=== PATIENT | female | born 1960 | race Caucasian/White ===

== ENCOUNTER 2016-08-14 01:17 | Inpatient (IN) | payer OTHER ==
[~2016-08-14] VITALS: Ht 167.6 cm; Wt 90.1 kg
[2016-08-14 02:35] VITALS: BP 184/106; PULSE 88; RESP 18; TEMP 98.4; O2SAT 97
[2016-08-14] MEDS ORDERED: BENZTROPINE MESYLATE 1 MG TAB PO PRN (03:00)
[2016-08-14] MEDS ORDERED: MAGNESIUM HYDROXIDE SUSP 30 ML CUP PO PRN (03:00)
[2016-08-14] MEDS ORDERED: ACETAMINOPHEN 325 MG TAB PO PRN (03:00)
[2016-08-14] MEDS ORDERED: ALUMINUM/MAGNESIUM/SIMETH 30 ML CUP PO PRN (03:00)
[2016-08-14] MEDS ORDERED: GLUCAGON 1 MG/ML VIAL OTHER PRN (03:15)
[2016-08-14] MEDS ORDERED: DEXTROSE 50% IN WATER 50 ML VIAL(D50) IV PUSH PRN (03:15)
[2016-08-14] MEDS ORDERED: cloNIDine HCL 0.1 MG TAB PO PRN (03:15)
[2016-08-14 04:30] VITALS: BP 159/96; PULSE 79; O2SAT 97
[2016-08-14] MEDS: LOW DOSE INSULIN NOVOLOG SUPPLEMENTAL SCALE SQ SCH ×4 (06:37→21:00)
[2016-08-14 06:41] VITALS: BP 145/73; PULSE 67; RESP 18; TEMP 97.2; O2SAT 97
[2016-08-14] MEDS: NICOTINE 21 MG/24 HR PATCH T-DERMAL SCH (08:42)
[2016-08-14] MEDS ORDERED: ZIPR1CAP12 PO (10:52)
[2016-08-14] MEDS ORDERED: REME15TA PO (10:52)
[2016-08-14] MEDS ORDERED: LISI-515 PO (10:52)
[2016-08-14] MEDS ORDERED: TRAM50TA PO (10:52)
[2016-08-14] MEDS ORDERED: XOPEAER4 INH (10:52)
[2016-08-14] MEDS ORDERED: PRAZ1CAP PO (10:52)
[2016-08-14] MEDS ORDERED: ASPI81CH CHEW (10:52)
[2016-08-14] MEDS ORDERED: OMEG100010 PO (10:52)
[2016-08-14] MEDS ORDERED: OXCA600T PO (10:52)
[2016-08-14] MEDS ORDERED: PROT40TA PO (10:52)
[2016-08-14] MEDS ORDERED: IPRA0.02 NEB (10:52)
[2016-08-14] MEDS ORDERED: VERA120T3 PO (10:52)
[2016-08-14] MEDS ORDERED: CLON1TAB PO (10:52)
[2016-08-14] MEDS ORDERED: SPIRCAP INH (10:52)
[2016-08-14] MEDS ORDERED: GABA600T PO (10:52)
[2016-08-14] MEDS ORDERED: ALEN1TAB48 PO (10:52)
[2016-08-14] MEDS ORDERED: ALBU.5I NEB (10:52)
[2016-08-14] MEDS ORDERED: VITA100064 PO (10:52)
[2016-08-14] MEDS ORDERED: TRAZ100T6 PO (10:52)
[2016-08-14] MEDS ORDERED: METF500T PO (10:52)
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
[2016-08-14] MEDS: LORazepam 1 MG TAB PO PRN (13:36)
[2016-08-14 13:54] VITALS: BP 157/97; PULSE 85
[2016-08-14] MEDS ORDERED: ASPIRIN EC 325 MG TABEC PO ONE (15:00)
--- NOTE | 2016-08-14 15:41 | PD.CONS ---
HPI Service [facility] Hospitalists Consult Requested By Psychiatric services Reason for Consult Medical management Primary Care Physician Unknown Diagnoses: History of Present Illness Written by Julienne Wolf PA-C acting as scribe for Dr. Stern on 08/14/16 at 15:18. This is a 55yo female with PMHX of hypertension, diabetes, COPD, depression, bipolar disorder, PTSD, GERD, INA on CPAP and mild CVA who was admitted to psychiatric unit for severe depression. Hospitalist services consulted for medical management. She was seen and examined today. Patient states she is here because "my depression hit hard". She reports she was recently kicked out of her home by her . Patient reports increasing mood instability. Patient admits to a suicidal ideation as well as violence against her . Patient reports chronic pain in the neck, low back and left side for which she is seeking disability. She also reports osteoarthritis in the left knee with constant pain. She reports nausea without vomiting for the past few days. She also reports a dry cough off and on for the past few months. She endorses unintentional weight loss of 20 pounds since June but does admit this coincides when she stopped taking all of her medications due to financial hardship. She endorses decreased appetite. At present she denies any fever, chills, headache , dizziness, shortness of breath, chest pain or abdominal pain. She does states that she's had colonoscopies with polypectomies yearly. She reports seeing blood in the stool yesterday. Review of Systems Except as stated in HPI: all other systems reviewed are Neg Past Family Social History Allergies: Coded Allergies: Theophylline (Verified Allergy, Unknown, 08/14/16) Past Medical History Hypertension DM COPD INA on CPAP Depression Bipolar GERD Myocardial bridge Chronic neck, low back and left sided pain Osteoarthritis Osteoporosis Diverticulosis Colonic polyps Past Surgical History Partial hysterectomy Cardiac catheterization Multiple colonoscopies with polypectomies Reported Medications Patient reports being off all her medications since June Verapamil 120 Mg [id number] Mg PO BID #60 TAB Ref 0 08/14/16 Alendronate 70 Mg Tab70 Mg PO Q7D #4 TAB Ref 0 08/14/16 Trazodone 100 Mg [id number] Mg PO HS #30 TAB Ref 0 08/14/16 [place]-3 Fatty Acids ([place] 3 1000 mg)1 Cap Cap3 Cap PO DAILY 08/14/16 Pantoprazole (Protonix)40 Mg Tab40 Mg PO DAILY #30 TAB Ref 0 08/14/16 Lisinopril 20 Mg Tab20 Mg PO DAILY #30 TAB Ref 0 08/14/16 Metformin 500 Mg Sbv023 Mg PO BIDPC #60 TAB Ref 0 With meals 08/14/16 Ipratropium Neb 0.5 Mg/2.5 Ml Amp0.5 Mg NEB Q6HR NEB Ref 0 08/14/16 Tiotropium Inh (Spiriva Handihaler)18 Mcg Cap18 Mcg INH DAILY #30 CAP Ref 0 1 capsule = 18 mcg 08/14/16 Levalbuterol 15 GM Inh (Xopenex Hfa 15 GM Inh)45 Mcg/Act Aer45 Mcg INH Q4HR #1 INHALER Ref 0 Shake well before using. (1 puff = 45 mcg) 08/14/16 Gabapentin 600 Mg Mjh842 Mg PO BID #60 TAB Ref 0 08/14/16 Aspirin 81 Mg Chew81 Mg CHEW DAILY Ref 0 08/14/16 Cholecalciferol (Vitamin D)1,000 Unit Tab2,000 Units PO DAILY #1 BOTTLE Ref 0 08/14/16 Oxcarbazepine 600 Mg Dbx731 Mg PO DAILY #30 TAB Ref 0 08/14/16 Tramadol 50 Mg Tab50 Mg PO Q8H PRN (PAIN) Ref 0 08/14/16 Active Ordered Medications Current Medications Medications (Trade) Dose Ordered Sig/Owen Route Start Time Stop Time Status Last Admin (Cogentin) 1 mg Q12H PRN PO 08/14/16 03:00 (Benadryl) 50 mg HS PRN PO 08/14/16 03:00 (Tylenol) 650 mg Q4H PRN PO 08/14/16 03:00 (Milk Of Magnesia Liq) 30 ml DAILY PRN PO 08/14/16 03:00 (Mag-Al Plus Susp Liq) 30 ml Q6H PRN PO 08/14/16 03:00 (Habitrol 21 Mg Patch.24 Hr) 1 patch DAILY T-DERMAL 08/14/16 09:00 Miscellaneous Information 1 HS T-DERMAL 08/14/16 21:00 (Ativan) 1 mg Q6H PRN PO 08/14/16 03:15 08/14/16 13:36 (Catapres) 0.1 mg Q6H PRN PO 08/14/16 03:15 08/14/16 03:13 (D50w (Vial) Inj) 25 ml UNSCH PRN IV PUSH 08/14/16 03:15 (Glucagon Inj) 1 mg UNSCH PRN OTHER 08/14/16 03:15 (Aspirin Chew) 81 mg DAILY CHEW 08/15/16 09:00 (Vitamin D3) 2,000 units DAILY PO 08/15/16 09:00 (Neurontin) 600 mg BID PO 08/14/16 21:00 (Prinivil) 20 mg DAILY PO 08/15/16 09:00 (Glucophage) 500 mg BIDPC PO 08/14/16 18:00 (Trileptal) 600 mg DAILY PO 08/15/16 09:00 (Protonix) 40 mg DAILY PO 08/15/16 09:00 (Spiriva Inh) 18 mcg DAILY INH 08/15/16 09:00 (Ultram) 50 mg Q8H PRN PO 08/14/16 12:00 (Isoptin) 240 mg BID PO 08/14/16 21:00 Patient Own Medication PT OWN MED: (Levalbuterol 15 GM ... Q4HR INH 08/14/16 16:00 (Desyrel) 200 mg HS PO 08/14/16 21:00 (Geodon) 60 mg BIDPC PO 08/14/16 18:00 (Minipress) 2 mg HS PO 08/14/16 21:00 Family History Father - , cancer Mother - pacemaker, diabetes, hypertension, depression Social History Patient denies any tobacco use, alcohol consumption or illicit drug use. 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 She is currently but unable to work and is seeking disability. Physical Exam Vital Signs Vital Signs Date Time Temp Pulse Resp B/P Pulse Ox O2 Delivery O2 Flow Rate FiO2 08/14/16 13:54 85 157/97 08/14/16 06:41 97.2 67 18 145/73 97 08/14/16 04:30 79 159/96 97 08/14/16 02:35 98.4 88 18 184/106 97 Physical Exam GENERAL: This is a well-nourished, well-developed patient, in no apparent distress. Awake and alert. Sitting in day room. SKIN: No rashes, ecchymoses or lesions. Cool and dry. HEAD: Atraumatic. Normocephalic. No temporal or scalp tenderness. EYES: Pupils equal round and reactive. Extraocular motions intact. No scleral icterus. No injection or drainage. ENT: Nose without bleeding, purulent drainage or septal hematoma. Throat without erythema, tonsillar hypertrophy or exudate. Uvula midline. Airway patent. NECK: Trachea midline. Tender to palpation along anterior neck. No masses or lymphadenopathy appreciated. Stiff movements of neck in all ranges of motion. CARDIOVASCULAR: Regular rate and rhythm without murmurs, gallops, or rubs. RESPIRATORY: Clear to auscultation. Breath sounds equal bilaterally. No wheezes , rales, or rhonchi. GASTROINTESTINAL: Abdomen soft, non-tender, nondistended. No hepato-splenomegaly , or palpable masses. No guarding. MUSCULOSKELETAL: Extremities without clubbing, cyanosis, or edema. Tenderness to palpation of left knee. No calf tenderness. NEUROLOGICAL: Awake and alert. Able to move all extremities. Normal speech. Assessment and Plan Assessment and Plan 55yo female with PMHX of hypertension, diabetes, COPD, depression, bipolar disorder, GERD, INA on CPAP and mild CVA who was admitted to psychiatric unit for severe depression. Hospitalist services consulted for medical management. Depression Bipolar disorder - Management per psychiatric team History of colon polyps Patient reports recent hematochezia - Consult GI - follow up H/H Hypertension Myocardial bridging Chest pain -informed by nursing staff but patient did not complain of during exam. Suspect anxiety related as it improved after Ativan was given. - Resume home antihypertensive meds lisinopril 20 mg daily and verapamil 240 mg by mouth twice a day - ASA now and daily - Cycle cardiac enzymes and EKGs to rule out ACS. Patient asymptomatic currently. - Clonidine when necessary - Monitor BP COPD - Resume home Spiriva and bronchodilators - Duonebs prn DM - Obtain A1c - Hold metformin 500 mg by mouth twice a day in the event further cardiac testing is needed - accuchecks - ISS GERD - PPI INA - Patient uses CPAP at home but unable to bring into the psych unit - Recommend the patient sleep on her side DVT prophylaxis - Patient is ambulatory Discussed Condition With This note was transcribed by [email or web address] [Julienne Wolf PA-C]. I, Dr. Anibal Stern personally performed the history, physical exam, and medical decision making; and confirmed the accuracy of the information in the transcribed note. Authenticated by Dr. Anibal Stern on 08/17/16 at 11:41. Julienne Wolf Aug 14, 2016 15:41 Anibal Stern MD Aug 17, 2016 11:41
[2016-08-14] MEDS: RESP: IPRATROPIUM 0.5 MG/2.5 ML NEB NEB SCH ×2 (16:00→20:39)
[2016-08-14 16:19] VITALS: BP 168/79; PULSE 77; RESP 18; TEMP 98; O2SAT 99
--- NOTE | 2016-08-14 16:21 | PD.CONS ---
HPI History of Present Illness This is a 55 year old female with family hx colon ca, personal hx GERD, HTN, who presents w/ complaint of blood in stool and abdominal pain. She had a BM yesterday and there was red blood intermingled in the stool. NO rectal bleeding independently of BM. SHe has seen this twice before in the last year. SHe is also having epigastric pain, nausea. She has lower abdominal discomfort that is constant and exacerbated by having a BM. THis has been on and off in the last year. She has lost 20lbs in the last month and a half. She had a colonoscopy last year and polyps were found; she has colonoscopy every year. She had EGD 2y ago and says she was told her esophagus had "burned appearance" and she has hiatal hernia. SHe does have GERD for which she takes protonix and it helps somewhat. She says she did a test last year that found "gallbladder sludge." Denies melena, vomiting. PFSH Past Medical History HTN GERD osteoporosis migraines fibromyalgia Past Surgical History partial hysterectomy laparoscopy cardiac cath Coded Allergies: Theophylline (Verified Allergy, Unknown, 08/14/16) Family History breast ca colon ca gastric ca Social History no ETOH, tobacco use, or illicit drug use Review of Systems Constitutional: COMPLAINS OF: Weight loss, DENIES: Fever Ears, nose, mouth, throat: DENIES: Hearing loss Respiratory: DENIES: Cough Cardiovascular: DENIES: Palpitations Gastrointestinal: COMPLAINS OF: Abdominal pain, Bloody stools, Nausea, DENIES : Black stools, Constipation, Diarrhea, Vomiting, Hematemesis Genitourinary: DENIES: Hematuria Musculoskeletal: DENIES: Joint Swelling Integumentary: DENIES: Rash Hematologic/lymphatic: DENIES: Bruising Neurologic: DENIES: Abnormal gait Psychiatric: DENIES: Confusion GI Exam Vitals I&O Vital Signs Date Time Temp Pulse Resp B/P Pulse Ox O2 Delivery O2 Flow Rate FiO2 08/14/16 13:54 85 157/97 08/14/16 06:41 97.2 67 18 145/73 97 08/14/16 04:30 79 159/96 97 08/14/16 02:35 98.4 88 18 184/106 97 I/O 08/13/16 08/13/16 08/13/16 08/14/16 08/14/16 08/14/16 07:00 15:00 23:00 07:00 15:00 23:00 Intake Total 240 ml Balance 240 ml Intake Oral 240 ml Physical Examination HEENT: PERRL; normocephalic; atraumatic; no jaundice. CHEST: CTA CARDIAC: RRR ABDOMEN: Soft, nondistended, RUQ & epigastric & lower abd TTP; no hepatosplenomegaly; bowel sounds are present in all four quadrants. EXTREMITIES: No clubbing, cyanosis, or edema. SKIN: Normal; no rash; no jaundice. PRODUCTION POSTING CLERK: No focal deficits; alert and oriented times three. Assessment and Plan Plan ASSESSMENT - hematochezia - yesterday episode red blood intermingled in stool. Last colonoscopy 1y ago found polyp (s). - abdominal pain - c/o epigastric discomfort, constant lower abd pain in last year, exacerbated by BM. Pt claims being told she had gallbladder sludge. EGD 2y ago with finding " burnt appearance" esophagus, hiatal hernia. hx GERD, takes PPI. Will do labwork, CT abd. - weight loss - 20lbs last month, pos [facility] - CBC, LFT - CT abd - EGD, colonoscopy wednesday tentatively - further recommendations to follow Pt seen by myself and Dr Shell and this note is written on his behalf Rhonda Marcum Aug 14, 2016 16:21
[2016-08-14] MEDS: metFORMIN HCL 500 MG TAB PO SCH (18:00)
[2016-08-14] MEDS: ZIPRASIDONE HCL 60 MG CAP PO SCH (18:48)
[2016-08-14] MEDS ORDERED: DIATRIZOATE MEGLUM/DIATRIZOATE SOD 9 ML CUP PO ONE (19:45)
[2016-08-14] MEDS: LEVALBUTEROL INH SCH (20:00)
[2016-08-14] MEDS: REMOVE OLD NICOTINE PATCH T-DERMAL SCH (21:00)
[2016-08-14] MEDS ORDERED: VERAPAMIL HCL 120 MG TAB PO SCH (21:00)
[2016-08-14] MEDS: GABAPENTIN 300 MG CAP PO SCH (22:40)
[2016-08-14] MEDS: traZODone HCL 100 MG TAB PO SCH (22:40)
[2016-08-14] MEDS: VERAPAMIL HCL 240 MG SUSTAINED RELEASE TAB PO SCH (22:40)
[2016-08-14] MEDS: PRAZOSIN HCL 2 MG CAP PO SCH (22:41)
[2016-08-15] MEDS: RESP: IPRATROPIUM 0.5 MG/2.5 ML NEB NEB SCH ×4 (04:00→21:32)
[2016-08-15] MEDS: LEVALBUTEROL INH SCH ×6 (04:00→20:00)
[2016-08-15] MEDS: LOW DOSE INSULIN NOVOLOG SUPPLEMENTAL SCALE SQ SCH ×4 (06:44→21:00)
[2016-08-15 06:49] VITALS: BP 166/78; PULSE 76; RESP 18; TEMP 97.4; O2SAT 96
[2016-08-15 08:00] LABS: AUTOMATED NEUTROPHIL # 2.8 TH/MM3 (1.8-7.7); BASOPHIL # 0.1 TH/MM3 (0-0.2); EOSINOPHIL # 0.2 TH/MM3 (0-0.4); EOSINOPHIL % 2.9 % (0.0-4.0); HEMATOCRIT 38.7 % (35.0-46.0); HEMO FLAGS DIFF FINAL; LYMPH % 38.7 % (9.0-44.0); LYMPHOCYTE # 2.1 TH/MM3 (1.0-4.8); MEAN CORPUSCULAR HEMOGLOBIN 27.7 PG (27.0-34.0); MEAN CORPUSCULAR HGB CONC 32.3 % (32.0-36.0); NEUT % 50.4 % (16.0-70.0); PLATELET COUNT 218 TH/MM3 (150-450); WHITE BLOOD COUNT 5.5 TH/MM3 (4.0-11.0)
[2016-08-15 08:23] LABS: ANION GAP 10 MEQ/L (5-15); AST (GOT) 62 U/L (15-37); BICARBONATE 25.2 MEQ/L (21.0-32.0); BLOOD UREA NITROGEN 10 MG/DL (7-18); CHLORIDE 107 MEQ/L (98-107); GLOMERULAR FILTRATION RATE 82 ML/MIN (>89); POTASSIUM 3.8 MEQ/L (3.5-5.1); SODIUM (NA) 142 MEQ/L (136-145)
[2016-08-15 08:24] LABS: ALT (GPT) 32 U/L (10-53)
[2016-08-15 08:28] LABS: ALKALINE PHOSPHATASE 66 U/L (45-117); HDL CHOLESTEROL 41.7 MG/DL (40.0-60.0); INDIRECT BILIRUBIN 0.2 MG/DL (0.0-0.8); LDL CHOLESTEROL 156 MG/DL (0-99); TOTAL BILIRUBIN ADULT 0.3 MG/DL (0.2-1.0)
[2016-08-15] MEDS: ZIPRASIDONE HCL 60 MG CAP PO SCH ×2 (09:00→18:13)
[2016-08-15] MEDS: TIOTROPIUM BROMIDE 18 MCG INH INH SCH (09:00)
[2016-08-15] MEDS: GABAPENTIN 300 MG CAP PO SCH ×2 (09:00→21:00)
[2016-08-15] MEDS: PANTOPRAZOLE SOD 40 MG DELAYED RELEASE TAB PO SCH (09:00)
[2016-08-15] MEDS ORDERED: OMEGA PO SCH (09:00)
[2016-08-15] MEDS: NICOTINE 21 MG/24 HR PATCH T-DERMAL SCH (09:00)
[2016-08-15] MEDS ORDERED: FATTY ACIDS PO SCH (09:00)
[2016-08-15] MEDS: VERAPAMIL HCL 240 MG SUSTAINED RELEASE TAB PO SCH ×2 (09:00→21:00)
[2016-08-15] MEDS: OXcarbazepine 600 MG TAB PO SCH (09:00)
[2016-08-15] MEDS ORDERED: LISINOPRIL 20 MG TAB PO SCH (09:00)
[2016-08-15] MEDS: ASPIRIN 81 MG CHEW TAB CHEW SCH (09:00)
[2016-08-15] MEDS: CHOLECALCIFEROL (VIT D3) 1000 UNIT TAB PO SCH (09:00)
[2016-08-15] MEDS ORDERED: DIATRIZOATE MEGLUM/DIATRIZOATE SOD 9 ML CUP ONE (10:00)
[2016-08-15] MEDS ORDERED: ATORVASTATIN 40 MG TAB PO ONE (12:15)
--- NOTE | 2016-08-15 15:23 | HHI.PYPN ---
Subjective Remarks Pt seen and discussed with staff. She reports that mood is more calm today and she is feeling less overwhelmed by depression. She denies SI/HI today. She is compliant with medication and denies side effects. Objective Alert: Yes [place]: Person, Place, Date Mood: Depressed Affect: Restricted Memory Intact: Immediate, Recent, Remote Hallucinations: Other (none) Delusions: No Delusion Type: Other (none) Suicidal: Ideation (denies) Homicidal: Ideation (denies) Insight/Judgment poor Labs Test 08/14/16 08/14/16 08/15/16 17:42 20:46 07:05 Troponin I LESS THAN 0.02 LESS THAN 0.02 LESS THAN 0.02 NG/ML NG/ML NG/ML White Blood Count 5.5 TH/MM3 Red Blood Count 4.50 MIL/MM3 Hemoglobin 12.5 GM/DL Hematocrit 38.7 % Mean Corpuscular Volume 86.0 FL Mean Corpuscular Hemoglobin 27.7 PG Mean Corpuscular Hemoglobin 32.3 % Concent Red Cell Distribution Width 14.0 % Platelet Count 218 TH/MM3 Mean Platelet Volume 8.1 FL Neutrophils (%) (Auto) 50.4 % Lymphocytes (%) (Auto) 38.7 % Monocytes (%) (Auto) 7.0 % Eosinophils (%) (Auto) 2.9 % Basophils (%) (Auto) 1.0 % Neutrophils # (Auto) 2.8 TH/MM3 Lymphocytes # (Auto) 2.1 TH/MM3 Monocytes # (Auto) 0.4 TH/MM3 Eosinophils # (Auto) 0.2 TH/MM3 Basophils # (Auto) 0.1 TH/MM3 CBC Comment DIFF FINAL Differential Comment Sodium Level 142 MEQ/L Potassium Level 3.8 MEQ/L Chloride Level 107 MEQ/L Carbon Dioxide Level 25.2 MEQ/L Anion Gap 10 MEQ/L Blood Urea Nitrogen 10 MG/DL Creatinine 0.74 MG/DL Estimat Glomerular Filtration 82 ML/MIN Rate Random Glucose 115 MG/DL Calcium Level 9.3 MG/DL Total Bilirubin 0.3 MG/DL Direct Bilirubin 0.1 MG/DL Indirect Bilirubin 0.2 MG/DL Aspartate Amino Transf 62 U/L (AST/SGOT) Alanine Aminotransferase 32 U/L (ALT/SGPT) Alkaline Phosphatase 66 U/L Total Creatine Kinase 48 U/L Total Protein 7.8 GM/DL Albumin 3.4 GM/DL Triglycerides Level 181 MG/DL Cholesterol Level 234 MG/DL LDL Cholesterol 156 MG/DL HDL Cholesterol 41.7 MG/DL Cholesterol/HDL Ratio 5.61 RATIO Vitals/IOs Vital Signs Date Time Temp Pulse Resp B/P Pulse Ox O2 Delivery O2 Flow Rate FiO2 08/15/16 06:49 97.4 76 18 166/78 96 Intake and Output 08/14/16 08/14/16 08/15/16 08:00 16:00 00:00 Intake Total 240 ml 240 ml Balance 240 ml 240 ml Assessment & Plan Problem List: (1) Adjustment disorder with mixed disturbance of emotions and conduct ICD Code: F43.25 (2) History of bipolar disorder ICD Code: Z86.59 Assessment & Plan Continue current tx plan Estimated LOS: days Justification for Cont. Inpt. risk of decompensation. Request HC Surrog/Guard Advoc?: No Lia Abrams MD Aug 15, 2016 15:23
--- NOTE | 2016-08-15 16:24 | EKG ---
Date Performed: 08/14/2016 Time Performed: 20:24:10 PTAGE: 55 years EKG: Sinus rhythm SEPTAL MYOCARDIAL INFARCTION , OF INDETERMINATE AGE ABNORMAL ECG PREVIOUS TRACING : 08/14/2016 14.35 Compared to prior tracing no significant change DOCTOR: Esau Broussard Interpretating Date/Time 08/15/2016 16:22:54
--- NOTE | 2016-08-15 16:43 | EKG ---
Date Performed: 08/14/2016 Time Performed: 14:35:11 PTAGE: 55 years EKG: Sinus rhythm NORMAL ECG NO PREVIOUS TRACING DOCTOR: Esau Broussard Interpretating Date/Time 08/15/2016 16:42:15
[2016-08-15] MEDS ORDERED: IOHEXOL 350 MG/ML 10 ML VIAL (for RAD DIAG) IV ONE (17:30)
--- NOTE | 2016-08-15 17:40 | RADRPT ---
EXAM DATE/TIME: 08/15/2016 16:55 [facility] COMPARISON: No previous studies available for comparison. INDICATIONS : Evaluate for diffuse abdomen pain. IV CONTRAST: 90 cc Omnipaque 350 (iohexol) IV ORAL CONTRAST: Prescribed oral contrast ingested. RADIATION DOSE: 10.25 CTDIvol (mGy) MEDICAL HISTORY : Stroke. Hypertension. fatty liver SURGICAL HISTORY : Hysterectomy. ENCOUNTER: Initial ACUITY: 1 day PAIN SCALE: 5/10 LOCATION: Bilateral abdomen TECHNIQUE: Volumetric scanning of the abdomen and pelvis was performed. Using automated exposure control and ad justment of the mA and/or kV according to patient size, radiation dose was kept as low as reasonably achievable to obtain optimal diagnostic quality images. DICOM format image data is available electro nically for review and comparison. FINDINGS: LOWER LUNGS: The visualized lower lungs are clear. LIVER: Decreased attenuation without lesion. There is no dilation of the biliary tree. No calcified gallst ones. SPLEEN: Normal size with small low densities. PANCREAS: Within normal limits. KIDNEYS: Normal in size and shape. There is no mass, stone or hydronephrosis. ADRENAL GLANDS: Within normal limits. VASCULAR: There is no aortic aneurysm. BOWEL/MESENTERY: The stomach, small bowel, and colon demonstrate no acute abnormality. There is no free intraperitone al air or fluid. The appendix measures 1 cm in thickness but no inflammatory changes. ABDOMINAL WALL: Within normal limits. RETROPERITONEUM: There is no lymphadenopathy. BLADDER: No wall thickening or mass. REPRODUCTIVE: Within normal limits. INGUINAL: There is no lymphadenopathy or hernia. MUSCULOSKELETAL: Within normal limits for patient age. CONCLUSION: 1. Moderate hepatic steatosis. 2. The appendix is somewhat prominent in diameter measuring a centimeter but no inflammatory changes are noted. Clinical correlation. 3. Status post hysterectomy. Ramiro Veag MD on August 15, 2016 at 17:35 Board Certified Radiologist. This report was verified electronically.
[2016-08-15 18:00] VITALS: BP 144/78; PULSE 75; RESP 18; TEMP 97.5; O2SAT 97
[2016-08-15] MEDS: traMADol HCL 50 MG TAB PO PRN (19:41)
[2016-08-15] MEDS: REMOVE OLD NICOTINE PATCH T-DERMAL SCH (21:00)
[2016-08-15] MEDS: traZODone HCL 100 MG TAB PO SCH (21:01)
[2016-08-15] MEDS: PRAZOSIN HCL 2 MG CAP PO SCH (21:01)
[2016-08-16] MEDS: LEVALBUTEROL INH SCH ×6 (04:00→20:00)
[2016-08-16] MEDS: RESP: IPRATROPIUM 0.5 MG/2.5 ML NEB NEB SCH ×4 (04:00→20:09)
[2016-08-16 06:45] VITALS: BP 129/65; PULSE 77; RESP 18; TEMP 95.8; O2SAT 92
[2016-08-16] MEDS: LOW DOSE INSULIN NOVOLOG SUPPLEMENTAL SCALE SQ SCH ×3 (07:00→16:00)
[2016-08-16] MEDS: NICOTINE 21 MG/24 HR PATCH T-DERMAL SCH (09:00)
[2016-08-16] MEDS: PANTOPRAZOLE SOD 40 MG DELAYED RELEASE TAB PO SCH (09:00)
[2016-08-16] MEDS: TIOTROPIUM BROMIDE 18 MCG INH INH SCH (09:00)
[2016-08-16] MEDS: CHOLECALCIFEROL (VIT D3) 1000 UNIT TAB PO SCH (09:33)
[2016-08-16] MEDS: GABAPENTIN 300 MG CAP PO SCH ×2 (09:33→21:57)
[2016-08-16] MEDS: VERAPAMIL HCL 240 MG SUSTAINED RELEASE TAB PO SCH ×2 (09:33→21:57)
[2016-08-16] MEDS: ZIPRASIDONE HCL 60 MG CAP PO SCH ×2 (09:33→18:24)
[2016-08-16] MEDS: ATORVASTATIN 40 MG TAB PO SCH (09:34)
[2016-08-16] MEDS: OXcarbazepine 600 MG TAB PO SCH (09:34)
[2016-08-16] MEDS: LISINOPRIL 20 MG TAB PO SCH (09:34)
[2016-08-16] MEDS: ASPIRIN 81 MG CHEW TAB CHEW SCH (09:34)
[2016-08-16] MEDS: traMADol HCL 50 MG TAB PO PRN (10:30)
[2016-08-16 10:34] LABS: HEMOGLOBIN A1a 1.1 %; HEMOGLOBIN A1b 2.1 %; HEMOGLOBIN Ao 84.4 %; HEMOGLOBIN P3 3.7 %
--- NOTE | 2016-08-16 15:33 | HHI.PYPN ---
Subjective Remarks Pt seen and discussed with staff. Pt has been cooperative with treatment and compliant with medications. She has been out of room today and engaging in unit activities. She reports that depression is decreasing and she denies SI/HI today. . Objective Alert: Yes [place]: Person, Place, Date Mood: Depressed Affect: Restricted Memory Intact: Immediate, Recent, Remote Hallucinations: Other (none) Delusions: No Delusion Type: Other (none) Suicidal: Ideation (denies) Homicidal: Ideation (denies) Insight/Judgment fair Vitals/IOs Vital Signs Date Time Temp Pulse Resp B/P Pulse Ox O2 Delivery O2 Flow Rate FiO2 08/16/16 06:45 95.8 77 18 129/65 92 Assessment & Plan Problem List: (1) Adjustment disorder with mixed disturbance of emotions and conduct ICD Code: F43.25 (2) History of bipolar disorder ICD Code: Z86.59 Assessment & Plan Continue current tx plan. Estimated LOS: days Justification for Cont. Inpt. observing for safety Request HC Surrog/Guard Advoc?: Lia Agudelo MD Aug 16, 2016 15:33
--- NOTE | 2016-08-16 16:34 | MB ---
cc: LILA SHARP MD DATE OF CONSULTATION: 08/16/2016. REASON FOR CONSULTATION: Chest pain. 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 The patient is currently admitted to the psychiatric unit for severe depression. She began complaining to staff of intermittent chest pressure which she describes as a squeezing sensation without any particular exacerbating or relieving factors. She is a somewhat difficult historian. She denies any current chest pain. She has no shortness breath, lightheadedness, dizziness or syncope. PAST MEDICAL HISTORY: 1. Diabetes. 2. COPD. 3. Depression. 4. Bipolar disorder. 5. PTSD. 6. Gastroesophageal reflux disease (GERD). 7. Obstructive sleep apnea. 8. CVA. CURRENT MEDICATIONS: 1. Lisinopril 40 milligrams daily. 2. Lipitor 40 milligrams daily. 3. Aspirin 81 milligrams daily. 4. Trileptal. 5. Protonix. 6. Spiriva. 7. Neurontin 600 milligrams twice a day. 8. Desyrel 200 milligrams at bedtime. 9. 2 milligrams at bedtime. 10. Verapamil 240 milligrams twice a day. 11. Geodon 60 milligrams twice a day. 12. Atrovent. ALLERGIES: THEOPHYLLINE. PHYSICAL EXAMINATION: VITAL SIGNS: Afebrile, pulse 77, respiratory rate 18, blood pressure 129/65, satting 92% on room air. GENERAL: In general, a pleasant obese woman in no distress. NECK: No jugular venous distention. LUNGS: Clear to auscultation bilaterally. CARDIOVASCULAR: Regular rate and rhythm. No murmurs appreciated. ABDOMEN: Benign. EXTREMITIES: No edema. LABORATORY DATA: Sodium 142, potassium 3.8, chloride 107, bicarbonate 25.2, BUN 10, creatinine 0.74, glucose 115. Cardiac enzymes are negative x3. LDL is 156. White count is 5.5, hematocrit 38.7, platelet count 218,000. EKGS: Electrocardiogram shows sinus rhythm with poor R wave progression possibly due to lead placement. IMPRESSION: 1. Chest pain. The patient's chest pain is reasonably typical-sounding; however, her history is complicated by severe depression and her nurse describes multiple somatic complaints. Her EKG is not currently ischemic. I will have her undergo a nuclear stress test as well as try to obtain her cardiac catheterization report from [place]. Further recommendations will be based on these studies. Thank you again for the opportunity to participate in this patient's care. MD MONIQUE Lim/MICHAEL /4:16 PM /4:31 PM
[2016-08-16 17:13] VITALS: BP 157/80; PULSE 88; RESP 18; TEMP 96.8; O2SAT 98
--- NOTE | 2016-08-16 20:51 | HHI.GIFU ---
GI Follow-up Note Consult Follow-up Subjective: Patient laying in bed comfortably, no nausea, vomiting, states she has abdominal pain in epigastrium.Denies rectal bleeding .today she had chest pains, cardiology consulted, having stress test in am.she had colonoscopy last year, was told she had polyps and hemorrhoids .she has constipation , sometimes has to stain for stool. She had an egd in 2014 -hiatal hernia Objective: PHYSICAL EXAMINATION: Vitals signs stable No fever Vital Signs Date Time Temp Pulse Resp B/P Pulse Ox O2 Delivery O2 Flow Rate FiO2 08/16/16 17:13 96.8 88 18 157/80 98 HEENT: Pupils round and reactive to light; normocephalic; atraumatic; no jaundice. Throat is clear. NECK: Neck is supple, no JVD, no lymphadenopathy. CHEST: Chest is clear to auscultation and percussion. CARDIAC: Regular rate and rhythm with no murmur gallop or rubs. ABDOMEN: Soft, nondistended, nontender; no hepatosplenomegaly; bowel sounds are present in all four quadrants. EXTREMITIES: No clubbing, cyanosis, or edema. SKIN: Normal; no rash; no jaundice. KEG INSPECTOR: No focal deficits; alert and oriented times three. Available Data (labs, X- Rays, Procedues) : ct, labs reviewed ASSESSMENT/PLAN: rectal bleeding, most likely hemorrhoidal, had colonoscopy last year atypical chest pain-being evaluated by cardiology Recommendation hydrocortisone suppositories miralax egd/flexisigmoidoscopy when cleared by cardiology obtain colon report It was a pleasure seeing Lizz Milan. Thank you for this consult. Entered by: Hannah Ahmadi MD Aug 16, 2016 20:51
[2016-08-16] MEDS: HYDROCORTISONE ACETATE 25 MG SUPP RECTAL SCH (21:00)
[2016-08-16] MEDS: INSULIN ASPART SUPPLEMENTAL SCALE SQ SCH (21:00)
[2016-08-16] MEDS: REMOVE OLD NICOTINE PATCH T-DERMAL SCH (21:00)
[2016-08-16] MEDS: traZODone HCL 100 MG TAB PO SCH (21:56)
[2016-08-16] MEDS: PRAZOSIN HCL 2 MG CAP PO SCH (21:57)
[2016-08-17] MEDS: LEVALBUTEROL INH SCH ×6 (04:00→20:00)
[2016-08-17] MEDS: RESP: IPRATROPIUM 0.5 MG/2.5 ML NEB NEB SCH ×3 (04:08→16:00)
[2016-08-17] MEDS: INSULIN ASPART SUPPLEMENTAL SCALE SQ SCH ×4 (06:06→21:00)
[2016-08-17] MEDS: PANTOPRAZOLE SOD 40 MG DELAYED RELEASE TAB PO SCH (09:00)
[2016-08-17] MEDS: TIOTROPIUM BROMIDE 18 MCG INH INH SCH (09:00)
[2016-08-17] MEDS: CHOLECALCIFEROL (VIT D3) 1000 UNIT TAB PO SCH (09:00)
[2016-08-17] MEDS: NICOTINE 21 MG/24 HR PATCH T-DERMAL SCH (09:00)
[2016-08-17] MEDS: HYDROCORTISONE ACETATE 25 MG SUPP RECTAL SCH ×3 (09:00→21:38)
[2016-08-17] MEDS: VERAPAMIL HCL 240 MG SUSTAINED RELEASE TAB PO SCH ×2 (09:45→21:38)
[2016-08-17] MEDS: POLYETHYLENE GLYCOL 17 GM PKG PO SCH (09:45)
[2016-08-17] MEDS: ZIPRASIDONE HCL 60 MG CAP PO SCH (09:46)
[2016-08-17] MEDS: GABAPENTIN 300 MG CAP PO SCH ×2 (09:46→21:36)
[2016-08-17] MEDS: ASPIRIN 81 MG CHEW TAB CHEW SCH (09:46)
[2016-08-17] MEDS: LISINOPRIL 20 MG TAB PO SCH (09:47)
[2016-08-17] MEDS: ATORVASTATIN 40 MG TAB PO SCH (09:47)
[2016-08-17] MEDS: OXcarbazepine 600 MG TAB PO SCH (09:47)
--- NOTE | 2016-08-17 09:49 | PD.CARD.PN ---
Subjective Subjective Remarks Pt says no further chest pain Objective Medications Administered Medications Medications (Trade) Dose Ordered Sig/Owen Route PRN Reason Start Time Stop Time Status Last Admin Dose Admin Lorazepam (Ativan) 1 mg Q6H PRN PO MODERATE TO SEVERE ANXIETY 08/14/16 03:15 08/14/16 13:36 Clonidine (Catapres) 0.1 mg Q6H PRN PO BP > 180/100 08/14/16 03:15 08/14/16 03:13 Aspirin (Aspirin Chew) 81 mg DAILY CHEW 08/15/16 09:00 08/16/16 09:34 Cholecalciferol (Vitamin D3) 2,000 units DAILY PO 08/15/16 09:00 08/16/16 09:33 Gabapentin (Neurontin) 600 mg BID PO 08/14/16 21:00 08/16/16 21:57 Oxcarbazepine (Trileptal) 600 mg DAILY PO 08/15/16 09:00 08/16/16 09:34 Pantoprazole Sodium (Protonix) 40 mg DAILY PO 08/15/16 09:00 08/16/16 09:00 Tiotropium [place] (Spiriva Inh) 18 mcg DAILY INH 08/15/16 09:00 08/16/16 09:00 Tramadol HCl (Ultram) 50 mg Q8H PRN PO PAIN 6-10 08/14/16 12:00 08/16/16 10:30 Trazodone HCl (Desyrel) 200 mg HS PO 08/14/16 21:00 08/16/16 21:56 Ziprasidone (Geodon) 60 mg BIDPC PO 08/14/16 18:00 08/16/16 18:24 Prazosin HCl (Minipress) 2 mg HS PO 08/14/16 21:00 08/16/16 21:57 Verapamil HCl (Isoptin Sr) 240 mg BID PO 08/14/16 21:00 08/16/16 21:57 Lisinopril (Prinivil) 40 mg DAILY PO 08/16/16 09:00 08/16/16 09:34 Atorvastatin Calcium (Lipitor) 40 mg DAILY PO 08/16/16 09:00 08/16/16 09:34 Vital Signs / I&O Vital Signs Date Time Temp Pulse Resp B/P Pulse Ox O2 Delivery O2 Flow Rate FiO2 08/16/16 17:13 96.8 88 18 157/80 98 Physical Exam GENERAL: This is a well-nourished, well-developed patient, in no apparent distress. CARDIOVASCULAR: Regular rate and rhythm without murmurs, gallops, or rubs. RESPIRATORY: Clear to auscultation. Breath sounds equal bilaterally. No wheezes , rales, or rhonchi. GASTROINTESTINAL: Abdomen soft, non-tender, nondistended. Normal active bowel sounds MUSCULOSKELETAL: Extremities without clubbing, cyanosis, or edema. NEURO: Alert & Oriented x4 to person, place, time, situation. Moves all ext x4 Imaging Last Impressions Abdomen/Pelvis CT 08/14/16 0000 Signed Impressions: Service Date/Time: Monday, August 15, 2016 16:55 - CONCLUSION: 1. Moderate hepatic steatosis. 2. The appendix is somewhat prominent in diameter measuring a centimeter but no inflammatory changes are noted. Clinical correlation. 3. Status post hysterectomy. Ramiro Vega MD Assessment and Plan Problem List: (1) Chest pain Assessment and Plan: Nuc stress today (2) Myocardial bridge Assessment and Plan: per pt's report, attempting to get old cath results from [place] (3) History of bipolar disorder Assessment and Plan If nuclear non-ischemic will sign off and be available as needed, please call with questions. Regis Scott MD Aug 17, 2016 09:48
--- NOTE | 2016-08-17 12:05 | HHI.PYPN ---
Subjective Remarks Patient seen and examined with nurse. Chart reviewed. Case discussed with nursing staff. On my examination today, the patient reports that her irritability is decreasing. Her urges towards violence directed against her is likewise decreasing but still present. She says that she plans to reside with a different family member on eventual discharge. She continues to complain of nightmares disrupting her sleep. She does say that this is somewhat improved with the prazosin, but she finds that the nightmare will simply "pause" for a time before resuming right where she left off. No suicidal ideation. Denies side effects from medications. No new physical complaints. Review of Systems Except as stated in HPI: all other systems reviewed are Neg Objective Alert: Yes [place]: Person, Place, Date Mood: Depressed (lessening somewhat) Affect: Restricted (more reactive) Memory Intact: Immediate, Recent, Remote Hallucinations: Other (no hallucinations) Delusions: No Delusion Type: Other (no delusional material) Suicidal: Ideation (no suicidal ideation) Homicidal: Ideation (decreasing urge to violence against her ) Insight/Judgment Fair Remarks No motor abnormalities noted. Thought process linear. Grooming and hygiene good. Labs Labs reviewed. Last Impressions Abdomen/Pelvis CT 08/14/16 0000 Signed Impressions: Service Date/Time: Monday, August 15, 2016 16:55 - CONCLUSION: 1. Moderate hepatic steatosis. 2. The appendix is somewhat prominent in diameter measuring a centimeter but no inflammatory changes are noted. Clinical correlation. 3. Status post hysterectomy. Ramiro Vega MD Vitals/IOs Vital Signs Date Time Temp Pulse Resp B/P Pulse Ox O2 Delivery O2 Flow Rate FiO2 08/16/16 17:13 96.8 88 18 157/80 98 Assessment & Plan Problem List: (1) Adjustment disorder with mixed disturbance of emotions and conduct ICD Code: F43.25 (2) History of bipolar disorder ICD Code: Z86.59 Assessment & Plan Titrate Geodon to 80mg BIDPC to try to lessen irritability. Titrate prazosin to 3mg qHS for nightmares. Continue other psychotropics as ordered. GI and cardiology input noted and appreciated. Continue other medications and care as ordered. Justification for Cont. Inpt. Medication changes in process. Monitoring for impairments in safety. Risk for decompensation in less restrictive environment. Discharge Planning Pending stabilization. Request HC Surrog/Guard Advoc?: No Chaiffetz,Alfonzo B. MD Aug 17, 2016 12:04
[2016-08-17] MEDS ORDERED: REGADENOSON INJ 0.4 MG/5 ML SYR ONE (13:25)
--- NOTE | 2016-08-17 15:16 | RADRPT ---
EXAM DATE/TIME: 08/17/2016 13:15 [facility] COMPARISON: CT ABDOMEN & PELVIS W CONTRAST, August 15, 2016, 16:55. INDICATIONS : Mid chest pressure for one day. Angina. DOSE: 25.6 mCi Tc99m Myoview at stress. 8.7 mCi Tc99m Myoview at rest. 0.4 mg Lexiscan STRESS SYMPTOMS: Chest pain, dyspnea and headache. EJECTION FRACTION: 70% MEDICAL HISTORY : Gastroesophageal reflux disease. Chronic obstructive pulmonary disease. Diabetes mellitus type 2. SURGICAL HISTORY : Hysterectomy. ENCOUNTER: Initial ACUITY: 1 day PAIN SCALE: 4/10 LOCATION: Midsternal chest TECHNIQUE: The patient underwent pharmacologic stress with infusion of prescribed dose. Continuous ECG tracing was monitored during stress. Gated SPECT imaging was performed after stress and conventional SPECT i maging was performed at rest. The examination was performed on a SPECT/CT scanner, both attenuation and non-corrected datasets were reviewed. FINDINGS: DISTRIBUTION: The maximum perfused segment at stress is in the lateral wall. PERFUSION STUDY: The pattern of perfusion at stress is within normal limits with the exception of a tiny fixed defect in the lobe inferolateral wall could be attenuation artifact and does not persist on the attenuation corrected images. GATED STUDY: There is intact wall motion and thickening without hypokinetic or dyskinetic segments. CONCLUSION: No significant ischemia. RISK CATEGORY: Low (<1% Annual Mortality Rate) Alice Cunha MD on August 17, 2016 at 15:13 Board Certified Radiologist. This report was verified electronically.
--- NOTE | 2016-08-17 17:01 | HHI.PR ---
Subjective Remarks Follow up on patient with HTN, DM, COPD, bipolar disorder, INA on CPAP and mild CVA. Patient seen and examined today. Patient had nuclear stress test. Awaiting EGD/flexible sigmoidoscopy. She complains of several month history of left shoulder and left hip pain. Denies any history of injury. Patient reports significantly limited range of motion of both joints. She has difficulty with ambulation due to her left hip pain. She reports audible clicking in her hip. She denies any fever or chills. Denies any chest pain or shortness of breath. No nausea, vomiting or abdominal pain. Objective Vitals Vital Signs Date Time Temp Pulse Resp B/P Pulse Ox O2 Delivery O2 Flow Rate FiO2 08/16/16 17:13 96.8 88 18 157/80 98 Result Diagram: 08/15/16 0705 08/15/16 0705 Imaging Last Impressions Myocardial Perfusion Scan Nuc Med 08/17/16 0000 Signed Impressions: Service Date/Time: Wednesday, August 17, 2016 13:15 - CONCLUSION: No significant ischemia. RISK CATEGORY: Low (<1%% Annual Mortality Rate) Alice Cunha MD Abdomen/Pelvis CT 08/14/16 0000 Signed Impressions: Service Date/Time: Monday, August 15, 2016 16:55 - CONCLUSION: 1. Moderate hepatic steatosis. 2. The appendix is somewhat prominent in diameter measuring a centimeter but no inflammatory changes are noted. Clinical correlation. 3. Status post hysterectomy. Ramiro Vega MD Objective Remarks GENERAL: This is a well-nourished, well-developed patient, in no apparent distress. Awake and alert. Sitting in day room. SKIN: No rashes, ecchymoses or lesions. Cool and dry. HEENT: Atraumatic. Normocephalic. EOMI. MMM. NECK: Trachea midline. Tender to palpation along anterior neck. No masses or lymphadenopathy appreciated. Stiff movements of neck in all ranges of motion. CARDIOVASCULAR: Regular rate and rhythm without murmurs, gallops, or rubs. RESPIRATORY: Clear to auscultation. Breath sounds equal bilaterally. No wheezes , rales, or rhonchi. GASTROINTESTINAL: Abdomen soft, non-tender, nondistended. No hepato-splenomegaly , or palpable masses. No guarding. MUSCULOSKELETAL: Extremities without clubbing, cyanosis, or edema. Patient exhibits decreased ROM in all planes of the left shoulder. Significantly tender to light touch left shoulder. (+)impingement. Mild swelling appreciated. Tenderness to palpation of left hip. Pain elicited with internal and external rotation. No calf tenderness. NEUROLOGICAL: Awake and alert. Able to move all extremities. Normal speech. Medications and IVs Current Medications Medications (Trade) Dose Ordered Sig/Owen Route Start Time Stop Time Status Last Admin (Cogentin) 1 mg Q12H PRN PO 08/14/16 03:00 (Benadryl) 50 mg HS PRN PO 08/14/16 03:00 (Tylenol) 650 mg Q4H PRN PO 08/14/16 03:00 (Milk Of Magnesia Liq) 30 ml DAILY PRN PO 08/14/16 03:00 (Mag-Al Plus Susp Liq) 30 ml Q6H PRN PO 08/14/16 03:00 (Habitrol 21 Mg Patch.24 Hr) 1 patch DAILY T-DERMAL 08/14/16 09:00 Miscellaneous Information 1 HS T-DERMAL 08/14/16 21:00 (Ativan) 1 mg Q6H PRN PO 08/14/16 03:15 08/14/16 13:36 (Catapres) 0.1 mg Q6H PRN PO 08/14/16 03:15 08/14/16 03:13 (D50w (Vial) Inj) 25 ml UNSCH PRN IV PUSH 08/14/16 03:15 (Glucagon Inj) 1 mg UNSCH PRN OTHER 08/14/16 03:15 (Aspirin Chew) 81 mg DAILY CHEW 08/15/16 09:00 08/17/16 09:46 (Vitamin D3) 2,000 units DAILY PO 08/15/16 09:00 08/17/16 09:00 (Neurontin) 600 mg BID PO 08/14/16 21:00 08/17/16 09:46 (Glucophage) 500 mg BIDPC PO 08/14/16 18:00 Hold (Trileptal) 600 mg DAILY PO 08/15/16 09:00 08/17/16 09:47 (Protonix) 40 mg DAILY PO 08/15/16 09:00 08/17/16 09:00 (Spiriva Inh) 18 mcg DAILY INH 08/15/16 09:00 08/16/16 09:00 (Ultram) 50 mg Q8H PRN PO 08/14/16 12:00 08/16/16 10:30 Patient Own Medication PT OWN MED: (Levalbuterol 15 GM ... Q4HR INH 08/14/16 16:00 (Desyrel) 200 mg HS PO 08/14/16 21:00 08/16/16 21:56 (Isoptin Sr) 240 mg BID PO 08/14/16 21:00 08/17/16 09:45 (Prinivil) 40 mg DAILY PO 08/16/16 09:00 08/17/16 09:47 (Lipitor) 40 mg DAILY PO 08/16/16 09:00 08/17/16 09:47 (Miralax) 17 gm DAILY PO 08/17/16 09:00 08/17/16 09:45 (Hemorrhoidal Hc Supp) 25 mg BID RECTAL 08/16/16 21:00 08/17/16 09:00 (Minipress) 3 mg HS PO 08/17/16 21:00 (Geodon) 80 mg BIDPC PO 08/18/16 09:00 (Geodon) 60 mg HS PO 08/17/16 21:00 08/17/16 21:01 A/P Assessment and Plan 55yo female with PMHX of hypertension, diabetes, COPD, depression, bipolar disorder, GERD, INA on CPAP and mild CVA who was admitted to psychiatric unit for severe depression. Hospitalist services consulted for medical management. Depression Bipolar disorder - Management per psychiatric team History of colon polyps Patient reports recent hematochezia - GI following, appreciate their assistance. Bleeding most likely hemorrhoidal per their note. - plan for EGD/flex sigmoidoscopy when cleared by cardiology Chest pain History of myocardial bridging - No known history of coronary disease - trops negative - Cardiology following, status post nuclear stress test today - no significant ischemia found Hypertension Dyslipidemia - no BP measurements in EMR for today - continue home antihypertensive meds lisinopril 40 mg daily and verapamil 240 mg by mouth twice a day - ASA daily - Clonidine when necessary - continue statin therapy Lipitor 40mg daily (lipid panel shows poor control but patient admits to stopping all of her medications in June) - Monitor BP COPD - Continue home Spiriva and bronchodilators - Duonebs prn DM - A1c 6.2 - Metformin 500 mg by mouth twice a day held for cardiac testing - continue accuchecks - BS was 84 this am - ISS Left shoulder pain Left hip pain Difficulty with ambulation - Patient denies any previous injury - obtain ESR and CRP - X-ray left shoulder and left hip - Lidoderm patch to left shoulder - PT eval/treatment GERD - PPI INA - Patient uses CPAP at home but unable to bring into the psych unit - Recommend the patient sleep on her side DVT prophylaxis - Patient is ambulatory Discussed with patient, nursing staff and Julienne Washington Aug 17, 2016 17:01
[2016-08-17 17:06] VITALS: BP 147/75; PULSE 105; RESP 18; TEMP 97.9; O2SAT 96
--- NOTE | 2016-08-17 17:42 | RADRPT ---
EXAM DATE/TIME: 08/17/2016 17:31 [facility] COMPARISON: No previous studies available for comparison. INDICATIONS : Left shoulder pain from unknown injury. MEDICAL HISTORY : None. SURGICAL HISTORY : None. ENCOUNTER: Initial ACUITY: 1 day PAIN SCORE: 8/10 LOCATION: Left shouler FINDINGS: Two view examination of the left shoulder demonstrates no evidence of fracture or dislocation. The g lenohumeral and acromioclavicular joints are maintained. Bony mineralization is normal. CONCLUSION: Negative for acute process. Bob Wesley MD FACR on August 17, 2016 at 17:40 Board Certified Radiologist. This report was verified electronically.
--- NOTE | 2016-08-17 17:43 | RADRPT ---
EXAM DATE/TIME: 08/17/2016 17:31 [facility] COMPARISON: No previous studies available for comparison. INDICATIONS : Left hip pain from unknown injury. MEDICAL HISTORY : None. SURGICAL HISTORY : None. ENCOUNTER: Initial ACUITY: 1 day PAIN SCORE: 8/10 LOCATION: Left hip FINDINGS: Examination of the left hip was performed with AP Pelvis. The primary and secondary trabecular patte rn of the femoral neck is intact. The hip joint is of normal width without significant sclerosis or bony hypertrophy. The acetabulum is grossly intact. CONCLUSION: Negative for fracture or dislocation. Follow up in 7-10 days is suggested if symptoms persist. Bob Wesley MD FACR on August 17, 2016 at 17:41 Board Certified Radiologist. This report was verified electronically.
[2016-08-17] MEDS ORDERED: ZIPRASIDONE HCL 60 MG CAP PO SCH (21:00)
[2016-08-17] MEDS: REMOVE OLD NICOTINE PATCH T-DERMAL SCH (21:00)
[2016-08-17] MEDS: traZODone HCL 100 MG TAB PO SCH (21:35)
[2016-08-17] MEDS: PRAZOSIN HCL 1 MG CAP PO SCH (21:38)
[2016-08-17] MEDS: diphenhydrAMINE HCL 50 MG CAP - HS PRN PO (21:38)
[2016-08-18] MEDS: LEVALBUTEROL INH SCH ×5 (04:00→20:00)
[2016-08-18 06:07] VITALS: BP 119/64; PULSE 65; RESP 16; TEMP 97.8; O2SAT 96
[2016-08-18] MEDS: INSULIN ASPART SUPPLEMENTAL SCALE SQ SCH ×4 (06:17→21:00)
[2016-08-18] MEDS: NICOTINE 21 MG/24 HR PATCH T-DERMAL SCH (09:00)
[2016-08-18] MEDS: TIOTROPIUM BROMIDE 18 MCG INH INH SCH (09:00)
[2016-08-18] MEDS: CHOLECALCIFEROL (VIT D3) 1000 UNIT TAB PO SCH (09:00)
[2016-08-18] MEDS: HYDROCORTISONE ACETATE 25 MG SUPP RECTAL SCH ×2 (09:00→21:10)
[2016-08-18 09:07] LABS: ANION GAP 9 MEQ/L (5-15); BICARBONATE 27.7 MEQ/L (21.0-32.0); BLOOD UREA NITROGEN 13 MG/DL (7-18); CHLORIDE 102 MEQ/L (98-107); POTASSIUM 4.2 MEQ/L (3.5-5.1); SODIUM (NA) 139 MEQ/L (136-145)
[2016-08-18] MEDS: GABAPENTIN 300 MG CAP PO SCH ×2 (09:10→21:09)
[2016-08-18] MEDS: ATORVASTATIN 40 MG TAB PO SCH (09:11)
[2016-08-18] MEDS: VERAPAMIL HCL 240 MG SUSTAINED RELEASE TAB PO SCH ×2 (09:11→21:00)
[2016-08-18] MEDS: ASPIRIN 81 MG CHEW TAB CHEW SCH (09:11)
[2016-08-18] MEDS: OXcarbazepine 600 MG TAB PO SCH (09:11)
[2016-08-18] MEDS: PANTOPRAZOLE SOD 40 MG DELAYED RELEASE TAB PO SCH (09:11)
[2016-08-18] MEDS: LISINOPRIL 20 MG TAB PO SCH (09:11)
[2016-08-18] MEDS: POLYETHYLENE GLYCOL 17 GM PKG PO SCH (09:11)
[2016-08-18 09:12] LABS: AST (GOT) 42 U/L (15-37); GLOMERULAR FILTRATION RATE 65 ML/MIN (>89)
[2016-08-18] MEDS: ZIPRASIDONE HCL 80 MG CAP PO SCH ×2 (09:12→17:37)
[2016-08-18] MEDS: LIDOCAINE HCL 5% PATCH T-DERMAL SCH (09:12)
[2016-08-18 09:26] LABS: ALKALINE PHOSPHATASE 68 U/L (45-117); ALT (GPT) 29 U/L (10-53); TOTAL BILIRUBIN ADULT 0.5 MG/DL (0.2-1.0)
[2016-08-18] MEDS: traMADol HCL 50 MG TAB PO PRN (09:44)
[2016-08-18] MEDS: RESP: IPRATROPIUM 0.5 MG/2.5 ML NEB NEB SCH ×3 (10:00→19:49)
--- NOTE | 2016-08-18 10:15 | HHI.PR ---
Subjective Remarks Follow up on patient with HTN, DM, COPD, bipolar disorder, INA on CPAP and mild CVA. Complains of dizziness described as spinning around. No nausea, visual changes, numbness and focal weakness. Discussed with RN, obtain head CT, fall precautions, seizure precautions and check orthostatic vital signs Objective Vitals Vital Signs Date Time Temp Pulse Resp B/P Pulse Ox O2 Delivery O2 Flow Rate FiO2 08/18/16 06:07 97.8 65 16 119/64 96 08/17/16 17:06 97.9 105 18 147/75 96 Result Diagram: 08/15/16 0705 08/18/16 0709 Imaging Last Impressions Shoulder X-Ray 08/17/16 0000 Signed Impressions: Service Date/Time: Wednesday, August 17, 2016 17:31 - CONCLUSION: Negative for acute process. Bob Wesley MD FACR Myocardial Perfusion Scan Nuc Med 08/17/16 0000 Signed Impressions: Service Date/Time: Wednesday, August 17, 2016 13:15 - CONCLUSION: No significant ischemia. RISK CATEGORY: Low (<1%% Annual Mortality Rate) Alice Cunha MD Hip and Pelvis X-Ray 08/17/16 0000 Signed Impressions: Service Date/Time: Wednesday, August 17, 2016 17:31 - CONCLUSION: Negative for fracture or dislocation. Follow up in 7-10 days is suggested if symptoms persist. Bob Wesley MD FACR Abdomen/Pelvis CT 08/14/16 0000 Signed Impressions: Service Date/Time: Monday, August 15, 2016 16:55 - CONCLUSION: 1. Moderate hepatic steatosis. 2. The appendix is somewhat prominent in diameter measuring a centimeter but no inflammatory changes are noted. Clinical correlation. 3. Status post hysterectomy. Ramiro Vega MD Objective Remarks GENERAL: This is a well-nourished, well-developed patient, in no apparent distress. Awake and alert. Sitting in day room. SKIN: No rashes, ecchymoses or lesions. Cool and dry. HEENT: Atraumatic. Normocephalic. EOMI. horizontal nystagmus noted NECK: Trachea midline. Tender to palpation along anterior neck. No masses or lymphadenopathy appreciated. Stiff movements of neck in all ranges of motion. CARDIOVASCULAR: Regular rate and rhythm without murmurs, gallops, or rubs. RESPIRATORY: Clear to auscultation. Breath sounds equal bilaterally. No wheezes , rales, or rhonchi. GASTROINTESTINAL: Abdomen soft, non-tender, nondistended. No guarding. MUSCULOSKELETAL: Extremities without clubbing, cyanosis, or edema. NEUROLOGICAL: Awake and alert. Able to move all extremities. Normal speech. A/P Assessment and Plan 55yo female with PMHX of hypertension, diabetes, COPD, depression, bipolar disorder, GERD, INA on CPAP and mild CVA who was admitted to psychiatric unit for severe depression. Hospitalist services consulted for medical management. Depression Bipolar disorder - Management per psychiatric team History of colon polyps Patient reports recent hematochezia - GI following, appreciate their assistance. Bleeding most likely hemorrhoidal per their note. - plan for EGD/flex sigmoidoscopy when cleared by cardiology. Stress test nonischemic Chest pain History of myocardial bridging - No known history of coronary disease - trops negative - Cardiology following, status post nuclear stress test today - no significant ischemia found Hypertension Dyslipidemia - continue home antihypertensive meds lisinopril 40 mg daily and verapamil 240 mg by mouth twice a day - ASA daily - Clonidine when necessary - continue statin therapy Lipitor 40mg daily (lipid panel shows poor control but patient admits to stopping all of her medications in June) - Monitor BP COPD - Continue home Spiriva and bronchodilators - Duonebs prn DM - A1c 6.2 - Metformin 500 mg by mouth twice a day held for cardiac testing. We will restart - continue accuchecks - - ISS Left shoulder pain Left hip pain Difficulty with ambulation - Patient denies any previous injury - X-ray left shoulder and left hip negative for acute injuries - Lidoderm patch to left shoulder - PT eval/treatment GERD - PPI INA - Patient uses CPAP at home but unable to bring into the psych unit - Recommend the patient sleep on her side Vertigo with nystagmus history of CVA - obtain head CT, fall precautions, seizure precautions and check orthostatic vital signs DVT prophylaxis - Patient is ambulatory Willian Moore MD Aug 18, 2016 10:14
--- NOTE | 2016-08-18 11:08 | PD.TTN ---
Patient Problems 1. Discharge planning 2. Medication compliance 3. Knowledge deficit 4. Lack of coping skills Progress Toward Goals Provider Input: Patient has had some medications changes to decrease her nightmares and other symptoms. Patient has a lot of consultations with other doctors and will be considered for discharge once that is appropriately followed through. Nurse Input: Patient is doing well and is sleeping good. Patient is medication compliant. Psych Therapist Input: Patient seems to be in higher spirits on the unit and is observed to be talking with peers on the unit. patient denies homicidal ideations towards her . Occupational Therapist Input: patient is attending groups regularly and is appropriate throughout groups. Monica Wheeler RMI Aug 18, 2016 11:08
[2016-08-18 12:34] VITALS: BP 110/58; PULSE 104; RESP 16; TEMP 97.9; O2SAT 90
--- NOTE | 2016-08-18 12:48 | HHI.PYPN ---
Subjective Remarks Patient seen and examined with nurse. Chart reviewed. Case discussed in treatment team with nurse, counselor and occupational therapist. Nurse reports no issues on the unit. Counselor reports patient plans to reside with sister. OT reports patient has been appropriate in groups. On my examination today, patient reports irritability is lessened today versus yesterday. She slept for shorter duration last night but says that sleep was more restful as it was nightmare-free. She denies any suicidal ideation today and denies any homicidal ideation today. Denies side effects from meds. Complains of rib pain following a twisting motion, worse with inspiration improved by immobility without associated symptoms. Nurse has already apprised hospitalist of these complaints. Review of Systems Except as stated in HPI: all other systems reviewed are Neg Objective Alert: Yes Sylva: Person, Place, Date Mood: Other (Mood improving) Affect: Other (more full and reactive) Memory Intact: Immediate, Recent, Remote Hallucinations: Other (No AVH) Delusions: No Delusion Type: Other (No delusions) Suicidal: Ideation (Denies SI) Homicidal: Ideation (Denies HI) Insight/Judgment Fair Remarks No motor abnormalities noted. Appears to be breathing easily. Thought process linear. Grooming and hygiene good. Labs Test 08/18/16 07:09 Erythrocyte Sedimentation Rate 44 mm/hr Sodium Level 139 MEQ/L Potassium Level 4.2 MEQ/L Chloride Level 102 MEQ/L Carbon Dioxide Level 27.7 MEQ/L Anion Gap 9 MEQ/L Blood Urea Nitrogen 13 MG/DL Creatinine 0.91 MG/DL Estimat Glomerular Filtration 65 ML/MIN Rate Random Glucose 113 MG/DL Calcium Level 9.7 MG/DL Total Bilirubin 0.5 MG/DL Aspartate Amino Transf 42 U/L (AST/SGOT) Alanine Aminotransferase 29 U/L (ALT/SGPT) Alkaline Phosphatase 68 U/L C-Reactive Protein 1.30 MG/DL Total Protein 8.1 GM/DL Albumin 3.6 GM/DL Thyroid Stimulating Hormone 0.871 uIU/ML 3rd Gen Labs reviewed. I note mildly elevated ESR/CRP. GFR mildly decreased. Last Impressions Shoulder X-Ray 08/17/16 0000 Signed Impressions: Service Date/Time: Wednesday, August 17, 2016 17:31 - CONCLUSION: Negative for acute process. Bob Wesley MD FACR Myocardial Perfusion Scan Nuc Med 08/17/16 0000 Signed Impressions: Service Date/Time: Wednesday, August 17, 2016 13:15 - CONCLUSION: No significant ischemia. RISK CATEGORY: Low (<1%% Annual Mortality Rate) Alice Cunha MD Hip and Pelvis X-Ray 08/17/16 0000 Signed Impressions: Service Date/Time: Wednesday, August 17, 2016 17:31 - CONCLUSION: Negative for fracture or dislocation. Follow up in 7-10 days is suggested if symptoms persist. Bob Wesley MD FACR Abdomen/Pelvis CT 08/14/16 0000 Signed Impressions: Service Date/Time: Monday, August 15, 2016 16:55 - CONCLUSION: 1. Moderate hepatic steatosis. 2. The appendix is somewhat prominent in diameter measuring a centimeter but no inflammatory changes are noted. Clinical correlation. 3. Status post hysterectomy. Ramiro Vega MD Studies reviewed. I note that patient's cardiac perfusion scan revealed no significant ischemia. Vitals/IOs Vital Signs Date Time Temp Pulse Resp B/P Pulse Ox O2 Delivery O2 Flow Rate FiO2 08/18/16 12:34 97.9 104 16 110/58 90 Assessment & Plan Problem List: (1) Adjustment disorder with mixed disturbance of emotions and conduct ICD Code: F43.25 (2) History of bipolar disorder ICD Code: Z86.59 Assessment & Plan Continue Geodon, prazosin and trazodone as ordered. Appreciate hospitalist assistance regarding patient's medical management. I will check a BMP in the morning. Continue to monitor on the inpatient unit. Continue other medications and care as ordered. Justification for Cont. Inpt. Risk for decompensation. Monitoring for impairments in safety. Discharge Planning Anticipate discharge by the end of the week. Request HC Surrog/Guard Advoc?: No Alfonzo Helton MD Aug 18, 2016 12:48
--- NOTE | 2016-08-18 15:07 | HHI.GIFU ---
Subjective Remarks Resting in bed. C/O mild nausea at times. No vomiting. Mild abdominal discomfort. Has not had any further rectal bleeding- states she only has this when she has a bowel movement and has not moved her bowels Objective Vitals I&O Vital Signs Date Time Temp Pulse Resp B/P Pulse Ox O2 Delivery O2 Flow Rate FiO2 08/18/16 12:34 97.9 104 16 110/58 90 08/18/16 06:07 97.8 65 16 119/64 96 08/17/16 17:06 97.9 105 18 147/75 96 Laboratory Laboratory Tests Test 08/18/16 07:09 Erythrocyte Sedimentation Rate 44 Sodium Level 139 Potassium Level 4.2 Chloride Level 102 Carbon Dioxide Level 27.7 Anion Gap 9 Blood Urea Nitrogen 13 Creatinine 0.91 Estimat Glomerular Filtration 65 Rate Random Glucose 113 Calcium Level 9.7 Total Bilirubin 0.5 Aspartate Amino Transf 42 (AST/SGOT) Alanine Aminotransferase 29 (ALT/SGPT) Alkaline Phosphatase 68 C-Reactive Protein 1.30 Total Protein 8.1 Albumin 3.6 Thyroid Stimulating Hormone 0.871 3rd Gen Imaging Last Impressions Shoulder X-Ray 08/17/16 0000 Signed Impressions: Service Date/Time: Wednesday, August 17, 2016 17:31 - CONCLUSION: Negative for acute process. Bob Wesley MD FACR Myocardial Perfusion Scan Nuc Med 08/17/16 0000 Signed Impressions: Service Date/Time: Wednesday, August 17, 2016 13:15 - CONCLUSION: No significant ischemia. RISK CATEGORY: Low (<1%% Annual Mortality Rate) Alice Cunha MD Hip and Pelvis X-Ray 08/17/16 0000 Signed Impressions: Service Date/Time: Wednesday, August 17, 2016 17:31 - CONCLUSION: Negative for fracture or dislocation. Follow up in 7-10 days is suggested if symptoms persist. Bob Wesley MD FACR Abdomen/Pelvis CT 08/14/16 0000 Signed Impressions: Service Date/Time: Monday, August 15, 2016 16:55 - CONCLUSION: 1. Moderate hepatic steatosis. 2. The appendix is somewhat prominent in diameter measuring a centimeter but no inflammatory changes are noted. Clinical correlation. 3. Status post hysterectomy. Ramiro Vega MD Physical Exam HEENT: Normocephalic; atraumatic; no jaundice. CHEST: CTA CARDIAC: RRR ABDOMEN: Soft, nondistended, nontender; no hepatosplenomegaly; bowel sounds are present in all four quadrants. EXTREMITIES: No clubbing, cyanosis, or edema. SKIN: Normal; no rash; no jaundice. DIGITAL STRATEGY DIRECTOR: No focal deficits; alert and oriented times three. Assessment and Plan Plan ASSESSMENT - Rectal bleeding/hematochezia. Last colonoscopy 1y ago found polyp(s). Has not had further bleeding. States she only has this when she moves bowels. Will plan for egd/colonoscopy in am. PPI, Miralax, Hydrocortisone supp. - Abdominal pain, nausea. c/o epigastric discomfort, constant lower abd pain in last year, exacerbated by BM. Pt claims being told she had gallbladder sludge. EGD 2y ago with finding "burnt appearance" esophagus , hiatal hernia. Hx GERD, takes PPI. Abdomen/Pelvis CT (08/14/16)-----> 1. Moderate hepatic steatosis. 2. The appendix is somewhat prominent in diameter measuring a centimeter but no inflammatory changes are noted. Clinical correlation. 3. Status post hysterectomy. PPI. Miralax. EGD/Colonoscopy in am. - Weight loss - 20lbs last month, pos [facility] - Plan for egd/colonoscopy in am - Obtain consents - Clear liquids - NPO after MN - PPI - Miralax - Hydrocortisone supp. - Supportive care - Further recommendations to follow based on results of above - PT seen and examined by Dr. Shell and myself and this note is written on his behalf Angie Luna Aug 18, 2016 15:07
[2016-08-18 15:31] VITALS: BP 138/70; PULSE 95; RESP 18; TEMP 97.8; O2SAT 100
[2016-08-18] MEDS ORDERED: PEG (High)/E-LYTE SOLN 4000 ML BTL PO ONE (16:00)
--- NOTE | 2016-08-18 17:14 | RADRPT ---
EXAM DATE/TIME: 08/18/2016 16:55 [facility] COMPARISON: CT ABDOMEN & PELVIS W CONTRAST, August 15, 2016, 16:55. INDICATIONS : Dizziness. RADIATION DOSE: 51.32 CTDIvol (mGy) MEDICAL HISTORY : Cardiovascular disease. Hypertension. Seizures. SURGICAL HISTORY : Hysterectomy. ENCOUNTER: Initial ACUITY: 1 day PAIN SCALE: 0/10 LOCATION: cranial TECHNIQUE: Multiple contiguous axial images were obtained of the head. Using automated exposure control and adj ustment of the mA and/or kV according to patient size, radiation dose was kept as low as reasonably a chievable to obtain optimal diagnostic quality images. DICOM format image data is available electro nically for review and comparison. FINDINGS: CEREBRUM: The ventricles are normal for age. No evidence of midline shift, mass lesion, hemorrhage or acute in farction. No extra-axial fluid collections are seen. POSTERIOR FOSSA: The cerebellum and brainstem are intact. The 4th ventricle is midline. The cerebellopontine angle i s unremarkable. EXTRACRANIAL: The visualized portion of the orbits is intact. SKULL: The calvaria is intact. No evidence of skull fracture. CONCLUSION: 1. No acute intracranial abnormality. Kennedy Wesley MD on August 18, 2016 at 17:12 Board Certified Radiologist. This report was verified electronically.
[2016-08-18] MEDS: metFORMIN HCL 500 MG TAB PO SCH (18:00)
[2016-08-18] MEDS: REMOVE OLD NICOTINE PATCH T-DERMAL SCH (21:00)
[2016-08-18] MEDS: PRAZOSIN HCL 1 MG CAP PO SCH (21:00)
[2016-08-18] MEDS: traZODone HCL 100 MG TAB PO SCH (21:00)
[2016-08-19] MEDS: RESP: IPRATROPIUM 0.5 MG/2.5 ML NEB NEB SCH ×4 (04:27→22:00)
[2016-08-19] MEDS: INSULIN ASPART SUPPLEMENTAL SCALE SQ SCH ×4 (06:00→20:45)
[2016-08-19 06:05] VITALS: BP 148/85; PULSE 87; RESP 19; TEMP 97.3; O2SAT 97
[2016-08-19 06:07] VITALS: BP 156/77
[2016-08-19 06:08] VITALS: BP 171/87
[2016-08-19] MEDS: LEVALBUTEROL INH SCH ×4 (08:00→16:00)
[2016-08-19] MEDS: VERAPAMIL HCL 240 MG SUSTAINED RELEASE TAB PO SCH ×2 (08:09→20:18)
[2016-08-19] MEDS: ZIPRASIDONE HCL 80 MG CAP PO SCH ×2 (08:09→17:18)
[2016-08-19] MEDS: LISINOPRIL 20 MG TAB PO SCH (08:10)
[2016-08-19] MEDS: POLYETHYLENE GLYCOL 17 GM PKG PO SCH (09:00)
[2016-08-19] MEDS: metFORMIN HCL 500 MG TAB PO SCH ×2 (09:00→17:18)
[2016-08-19] MEDS: TIOTROPIUM BROMIDE 18 MCG INH INH SCH ×2 (09:00→16:07)
[2016-08-19] MEDS: NICOTINE 21 MG/24 HR PATCH T-DERMAL SCH (09:00)
[2016-08-19] MEDS: HYDROCORTISONE ACETATE 25 MG SUPP RECTAL SCH ×2 (09:00→20:38)
--- NOTE | 2016-08-19 09:30 | HHI.PR ---
Subjective Remarks Follow-up hypertension. BP elevated this morning 171/87. Prazosin was not given last night due to low blood pressure though I cannot find the BP reading last night in the EMR. Patient tolerated endoscopy. Denies abdominal pain and no further bleeding. Reports of right proximal forearm discomfort which appears to be phlebitis. Discussed with RN to start warm compresses Objective Vitals Vital Signs Date Time Temp Pulse Resp B/P Pulse Ox O2 Delivery O2 Flow Rate FiO2 08/19/16 06:08 171/87 08/19/16 06:07 156/77 08/19/16 06:05 97.3 87 19 148/85 97 08/18/16 15:31 97.8 95 18 138/70 100 08/18/16 12:34 97.9 104 16 110/58 90 Result Diagram: 08/15/16 0705 08/18/16 0709 Imaging Last Impressions Head CT 08/18/16 0000 Signed Impressions: Service Date/Time: Thursday, August 18, 2016 16:55 - CONCLUSION: 1. No acute intracranial abnormality. Kennedy Wesley MD Shoulder X-Ray 08/17/16 0000 Signed Impressions: Service Date/Time: Wednesday, August 17, 2016 17:31 - CONCLUSION: Negative for acute process. Bob Wesley MD FACR Myocardial Perfusion Scan Nuc Med 08/17/16 0000 Signed Impressions: Service Date/Time: Wednesday, August 17, 2016 13:15 - CONCLUSION: No significant ischemia. RISK CATEGORY: Low (<1%% Annual Mortality Rate) KMadeleine Cunha MD Hip and Pelvis X-Ray 08/17/16 0000 Signed Impressions: Service Date/Time: Wednesday, August 17, 2016 17:31 - CONCLUSION: Negative for fracture or dislocation. Follow up in 7-10 days is suggested if symptoms persist. Bob Wseley MD FACR Abdomen/Pelvis CT 08/14/16 0000 Signed Impressions: Service Date/Time: Monday, August 15, 2016 16:55 - CONCLUSION: 1. Moderate hepatic steatosis. 2. The appendix is somewhat prominent in diameter measuring a centimeter but no inflammatory changes are noted. Clinical correlation. 3. Status post hysterectomy. Ramiro Vega MD Objective Remarks GENERAL: This is a well-nourished, well-developed patient, in no apparent distress. Awake and alert. SKIN: No rashes, ecchymoses or lesions. Cool and dry. HEENT: Atraumatic. Normocephalic. EOMI. horizontal nystagmus noted NECK: Trachea midline. CARDIOVASCULAR: Regular rate and rhythm without murmurs, gallops, or rubs. RESPIRATORY: Clear to auscultation. Breath sounds equal bilaterally. No wheezes , rales, or rhonchi. GASTROINTESTINAL: Abdomen soft, non-tender, nondistended. No guarding. MUSCULOSKELETAL: Extremities without clubbing, cyanosis, or edema. Right occipital forearm with slight tender swelling consistent with phlebitis NEUROLOGICAL: Awake and alert. Able to move all extremities. Normal speech. Procedures EGD and colonoscopy A/P Assessment and Plan 55yo female with PMHX of hypertension, diabetes, COPD, depression, bipolar disorder, GERD, INA on CPAP and mild CVA who was admitted to psychiatric unit for severe depression. Hospitalist services consulted for medical management. Depression Bipolar disorder - Management per psychiatric team History of colon polyps Patient reports recent hematochezia -EGD shows gastritis status post biopsy continue PPI. Colonoscopy shows diverticulosis start metamucil Chest pain History of myocardial bridging - No known history of coronary disease - trops negative - Cardiology following, status post nuclear stress test today - no significant ischemia found Hypertension Dyslipidemia - BP elevated this morning as she missed prazosin dose last night. Continue home antihypertensive meds prazosin, lisinopril 40 mg daily and verapamil 240 mg by mouth twice a day - ASA daily - Clonidine when necessary - continue statin therapy Lipitor 40mg daily (lipid panel shows poor control but patient admits to stopping all of her medications in June) - Monitor BP COPD - Continue home Spiriva and bronchodilators - Duonebs prn DM - A1c 6.2 - Metformin 500 mg by mouth twice a day - continue accuchecks - - ISS Left shoulder pain Left hip pain Difficulty with ambulation - Patient denies any previous injury - X-ray left shoulder and left hip negative for acute injuries - Lidoderm patch to left shoulder - PT eval/treatment GERD - PPI INA - Patient uses CPAP at home but unable to bring into the psych unit - Recommend the patient sleep on her side Vertigo with nystagmus history of CVA - Improved. Unremarkable head CT. Fall precautions, seizure precautions Right forearm phlebitis. Warm compress monitor for infection DVT prophylaxis - Patient is ambulatory Willian Moore MD Aug 19, 2016 09:30
[2016-08-19 10:13] LABS: BICARBONATE 30.6 MEQ/L (21.0-32.0); POTASSIUM 4.3 MEQ/L (3.5-5.1)
[2016-08-19 10:31] VITALS: BP 148/85; PULSE 87; RESP 19; TEMP 97.3; O2SAT 97
[2016-08-19 10:34] VITALS: O2SAT 100
[2016-08-19] MEDS ORDERED: GLUCAGON 1 MG/ML VIAL IV PUSH ONE (12:00)
[2016-08-19] MEDS ORDERED: PROPOFOL 200 MG/20 ML AMP IV PUSH ONE (12:14)
--- NOTE | 2016-08-19 12:19 | HHI.GIFU ---
Subjective Remarks Immediate postop note: EGD with biopsy and colonoscopy Indication: Blood in stool Meds: MAC Findings: Esophagus: normal Stomach: mild gastritis. Bx taken Duodenum: normal Cecum: normal Colon spastic, diverticulosis mild Rectum: normal Impression: Gastritis. Diverticulosis. Rec: Await biopsy results. Metamucil 1 tablespoon daily. Objective Vitals I&O Vital Signs Date Time Temp Pulse Resp B/P Pulse Ox O2 Delivery O2 Flow Rate FiO2 08/19/16 10:34 100 08/19/16 10:31 97.3 87 19 148/85 97 08/19/16 06:08 171/87 08/19/16 06:07 156/77 08/19/16 06:05 97.3 87 19 148/85 97 08/18/16 15:31 97.8 95 18 138/70 100 08/18/16 12:34 97.9 104 16 110/58 90 Laboratory Laboratory Tests Test 08/19/16 08:25 Sodium Level 140 Potassium Level 4.3 Chloride Level 102 Carbon Dioxide Level 30.6 Anion Gap 7 Blood Urea Nitrogen 7 Creatinine 0.79 Estimat Glomerular Filtration 76 Rate Random Glucose 107 Calcium Level 9.6 Physical Exam HEENT: Normocephalic; atraumatic; no jaundice. CHEST: CTA CARDIAC: RRR ABDOMEN: Soft, nondistended, nontender; no hepatosplenomegaly; bowel sounds are present in all four quadrants. EXTREMITIES: No clubbing, cyanosis, or edema. SKIN: Normal; no rash; no jaundice. PRODUCT MARKETING DIRECTOR: No focal deficits; alert and oriented times three. Assessment and Plan Plan ASSESSMENT - Rectal bleeding/hematochezia. Last colonoscopy 1y ago found polyp(s). Has not had further bleeding. States she only has this when she moves bowels. Will plan for egd/colonoscopy in am. PPI, Miralax, Hydrocortisone supp. - Abdominal pain, nausea. c/o epigastric discomfort, constant lower abd pain in last year, exacerbated by BM. Pt claims being told she had gallbladder sludge. EGD 2y ago with finding "burnt appearance" esophagus , hiatal hernia. Hx GERD, takes PPI. Abdomen/Pelvis CT (08/14/16)-----> 1. Moderate hepatic steatosis. 2. The appendix is somewhat prominent in diameter measuring a centimeter but no inflammatory changes are noted. Clinical correlation. 3. Status post hysterectomy. PPI. Miralax. EGD/Colonoscopy in am. - Weight loss - 20lbs last month, pos [facility] PL[facility] - egd/colonoscopy done 08/19 Findings mild gastritis, and spastic diverticulosis - Await biopsy result- PPI - Miralax 1 dose daily and metamucil 1 tablespoon daily - Hydrocortisone supp. - Supportive care Jas Shell MD Aug 19, 2016 12:19
[2016-08-19] MEDS: traMADol HCL 50 MG TAB PO PRN ×3 (12:54→21:28)
[2016-08-19] MEDS: ASPIRIN 81 MG CHEW TAB CHEW SCH (12:54)
[2016-08-19] MEDS: ATORVASTATIN 40 MG TAB PO SCH (12:55)
[2016-08-19] MEDS: OXcarbazepine 600 MG TAB PO SCH (12:55)
[2016-08-19] MEDS: GABAPENTIN 300 MG CAP PO SCH ×2 (12:55→20:14)
[2016-08-19] MEDS: PANTOPRAZOLE SOD 40 MG DELAYED RELEASE TAB PO SCH (12:55)
[2016-08-19] MEDS: CHOLECALCIFEROL (VIT D3) 1000 UNIT TAB PO SCH (12:55)
[2016-08-19] MEDS: LIDOCAINE HCL 5% PATCH T-DERMAL SCH (12:56)
--- NOTE | 2016-08-19 13:45 | HHI.PYPN ---
Subjective Remarks Patient seen and examined. Chart reviewed. I have reviewed Dr. Shell's notes from patient's GI procedures today. Case discussed with nursing staff. Per nurse, patient has been sociable on the unit and no behavioral problem. On my examination today, patient seen after returning from EGD/colonoscopy. She is recovering from the procedures well and is presently completely awake and alert. Psychiatrically, she is improving. Affect is brighter. Denies any SI or HI at this time. Denies side effects from medications. Feels like medications are dosed appropriately at current levels. No physical complaints. Review of Systems Except as stated in HPI: all other systems reviewed are Neg Objective Alert: Yes [place]: Person (oriented 3) Mood: Other (mood continues to improve) Affect: Appropriate Memory Intact: Comment (intact on clinical exam) Hallucinations: Other (no hallucinations) Delusions: No Delusion Type: Other (no delusions elicited) Suicidal: Ideation (denies suicidal ideation) Homicidal: Ideation (denies homicidal ideation) Insight/Judgment Fair Remarks No motor abnormalities noted. Thought process linear. Grooming and hygiene good. Labs Labs reviewed. GFR improved. Test 08/19/16 08:25 Sodium Level 140 MEQ/L Potassium Level 4.3 MEQ/L Chloride Level 102 MEQ/L Carbon Dioxide Level 30.6 MEQ/L Anion Gap 7 MEQ/L Blood Urea Nitrogen 7 MG/DL Creatinine 0.79 MG/DL Estimat Glomerular Filtration 76 ML/MIN Rate Random Glucose 107 MG/DL Calcium Level 9.6 MG/DL Last Impressions Head CT 08/18/16 0000 Signed Impressions: Service Date/Time: Thursday, August 18, 2016 16:55 - CONCLUSION: 1. No acute intracranial abnormality. Kennedy Wesley MD Vitals/IOs Vital Signs Date Time Temp Pulse Resp B/P Pulse Ox O2 Delivery O2 Flow Rate FiO2 08/19/16 12:38 85 18 137/81 99 08/19/16 12:18 97.5 Assessment & Plan Problem List: (1) Adjustment disorder with mixed disturbance of emotions and conduct ICD Code: F43.25 (2) History of bipolar disorder ICD Code: Z86.59 Assessment & Plan Continue current psychiatric medications as ordered. Appreciate center consultant input in the case. Will follow-up results of stomach biopsy. Continue other medications and care as ordered. Justification for Cont. Inpt. Complicating conditions Discharge Planning Anticipate discharge within the next day or 2. Request HC Surrog/Guard Advoc?: No Alfonzo Helton MD Aug 19, 2016 13:45
[2016-08-19 18:10] VITALS: BP 166/86; PULSE 98; RESP 18; TEMP 98.4; O2SAT 99
[2016-08-19] MEDS: PRAZOSIN HCL 1 MG CAP PO SCH (20:14)
[2016-08-19] MEDS: traZODone HCL 100 MG TAB PO SCH (20:15)
[2016-08-19] MEDS: REMOVE OLD NICOTINE PATCH T-DERMAL SCH (20:46)
[2016-08-20] MEDS: RESP: IPRATROPIUM 0.5 MG/2.5 ML NEB NEB SCH ×4 (04:00→22:02)
[2016-08-20 05:24] VITALS: BP 118/63; PULSE 96; RESP 18; TEMP 98.1; O2SAT 100
[2016-08-20] MEDS: INSULIN ASPART SUPPLEMENTAL SCALE SQ SCH ×4 (06:04→21:00)
[2016-08-20] MEDS: VERAPAMIL HCL 240 MG SUSTAINED RELEASE TAB PO SCH ×2 (08:56→21:36)
[2016-08-20] MEDS: ATORVASTATIN 40 MG TAB PO SCH (08:56)
[2016-08-20] MEDS: GABAPENTIN 300 MG CAP PO SCH ×2 (08:57→21:36)
[2016-08-20] MEDS: LISINOPRIL 20 MG TAB PO SCH (08:57)
[2016-08-20] MEDS: ZIPRASIDONE HCL 80 MG CAP PO SCH ×2 (08:58→18:15)
[2016-08-20] MEDS: metFORMIN HCL 500 MG TAB PO SCH ×2 (08:58→18:15)
[2016-08-20] MEDS: OXcarbazepine 600 MG TAB PO SCH (08:58)
[2016-08-20] MEDS: ASPIRIN EC 81 MG TABEC PO SCH (08:59)
[2016-08-20] MEDS: PANTOPRAZOLE SOD 40 MG DELAYED RELEASE TAB PO SCH (08:59)
[2016-08-20] MEDS: CHOLECALCIFEROL (VIT D3) 1000 UNIT TAB PO SCH (09:00)
[2016-08-20] MEDS: POLYETHYLENE GLYCOL 17 GM PKG PO SCH (09:02)
[2016-08-20] MEDS: HYDROCORTISONE ACETATE 25 MG SUPP RECTAL SCH ×2 (09:02→21:00)
[2016-08-20] MEDS: NICOTINE 21 MG/24 HR PATCH T-DERMAL SCH (09:03)
[2016-08-20] MEDS: PSYLLIUM FIBER SF/GF 6 GM POWD PKT PO SCH (09:07)
[2016-08-20] MEDS: TIOTROPIUM BROMIDE 18 MCG INH INH SCH ×2 (09:09→09:11)
[2016-08-20 09:27] VITALS: O2SAT 96
[2016-08-20] MEDS: LORazepam 1 MG TAB PO PRN (09:42)
[2016-08-20] MEDS: LIDOCAINE HCL 5% PATCH T-DERMAL SCH ×2 (10:06→16:58)
--- NOTE | 2016-08-20 11:40 | MR ---
cc: MALIK HELTON,MANDEEP Gonzalez JR., MD DATE 08/19/2016 PROCEDURE Esophagogastroduodenoscopy with biopsy and colonoscopy. INDICATION Blood in the stool REFERRING PHYSICIAN Dr. Helton PROCEDURE After informed consent was obtained, the patient was placed in the left side down position. She was sedated by the anesthesia service. After adequate sedation was achieved, the Pentax video gastroscope was inserted in the oropharynx and advanced through the esophagus, stomach and duodenum. It was slowly withdrawn examining the mucosal surfaces carefully. Retroflex examination was performed. The fundus and cardia scope was then straightened and a biopsy was obtained from the gastric antrum. The scope was then withdrawn slowly through the esophagus and the procedure was terminated. A colonoscopy is then performed. Digital rectal examination was normal. The Pentax video colonoscope was inserted in the anal canal and advanced through the colon reaching the base of the cecum. It was then slowly withdrawn examining the mucosal surfaces carefully. A retroflex exam was performed in the rectum. The scope was then straightened and pulled through the anal canal and the procedure was terminated. She tolerated the procedure well and was returned to the recovery area in good condition. FINDINGS 1. The esophagus was normal. 2. The stomach showed some mild gastritis and biopsy was taken. 3. The duodenum was normal. 4. The cecum was normal. 5. The colon was somewhat spastic especially distally and there is diverticulosis present. 6. The rectum was normal. IMPRESSION 1. Gastritis 2. Diverticulosis RECOMMENDATIONS 1. The patient is taking Metamucil one tablespoon daily. 2. She should continue to take MiraLax one dose daily. 3. We will await the biopsy results. MD DIVINE Del Real/MANDYL /3:18 PM /11:34 AM
--- NOTE | 2016-08-20 12:54 | HHI.GIFU ---
Subjective Remarks Resting in bed. Tired, states she was just given medicine to relax her. No n/ v. No abdominal pain. No bleeding. Tolerating diet. Objective Vitals I&O Vital Signs Date Time Temp Pulse Resp B/P Pulse Ox O2 Delivery O2 Flow Rate FiO2 08/20/16 09:27 96 08/20/16 05:24 98.1 96 18 118/63 100 08/19/16 18:10 98.4 98 18 166/86 99 I/O 08/19/16 08/19/16 08/19/16 08/20/16 08/20/16 08/20/16 07:00 15:00 23:00 07:00 15:00 23:00 Intake Total 800 ml Balance 800 ml Other 800 ml Imaging Last Impressions Head CT 08/18/16 0000 Signed Impressions: Service Date/Time: Thursday, August 18, 2016 16:55 - CONCLUSION: 1. No acute intracranial abnormality. Kennedy Wesley MD Shoulder X-Ray 08/17/16 0000 Signed Impressions: Service Date/Time: Wednesday, August 17, 2016 17:31 - CONCLUSION: Negative for acute process. Bob Wesley MD FACR Myocardial Perfusion Scan Nuc Med 08/17/16 0000 Signed Impressions: Service Date/Time: Wednesday, August 17, 2016 13:15 - CONCLUSION: No significant ischemia. RISK CATEGORY: Low (<1%% Annual Mortality Rate) Alice Cunha MD Hip and Pelvis X-Ray 08/17/16 0000 Signed Impressions: Service Date/Time: Wednesday, August 17, 2016 17:31 - CONCLUSION: Negative for fracture or dislocation. Follow up in 7-10 days is suggested if symptoms persist. Bob Wesley MD FACR Abdomen/Pelvis CT 08/14/16 0000 Signed Impressions: Service Date/Time: Monday, August 15, 2016 16:55 - CONCLUSION: 1. Moderate hepatic steatosis. 2. The appendix is somewhat prominent in diameter measuring a centimeter but no inflammatory changes are noted. Clinical correlation. 3. Status post hysterectomy. Ramiro Vega MD Physical Exam HEENT: Normocephalic; atraumatic; no jaundice. CHEST: CTA CARDIAC: RRR ABDOMEN: Soft, nondistended, nontender; no hepatosplenomegaly; bowel sounds are present in all four quadrants. EXTREMITIES: No clubbing, cyanosis, or edema. SKIN: Normal; no rash; no jaundice. 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 Assessment and Plan Plan ASSESSMENT - Rectal bleeding/hematochezia. Last colonoscopy 1y ago found polyp(s). Has not had further bleeding. States she only has this when she moves bowels. S/P EGD/Colonoscopy (08/20/16)----> normal esophagus, mild gastritis, spastic diverticulosis. PPI, Miralax, Metamucil, Hydrocortisone supp. No further bleeding. - Abdominal pain, nausea. c/o epigastric discomfort, constant lower abd pain in last year, exacerbated by BM. Pt claims being told she had gallbladder sludge. EGD 2y ago with finding "burnt appearance" esophagus , hiatal hernia. Hx GERD, takes PPI. Abdomen/Pelvis CT (08/14/16)-----> 1. Moderate hepatic steatosis. 2. The appendix is somewhat prominent in diameter measuring a centimeter but no inflammatory changes are noted. Clinical correlation. 3. Status post hysterectomy. PPI. Miralax. EGD/Colonoscopy as above. IMPROVED. - Weight loss - 20lbs last month, pos [facility] [place] [facility] - [place] - Await pathology - Miralax 1 dose daily - Metamucil 1 tablespoon daily - Hydrocortisone supp. - GI will sign off, please reconsult as needed - Pt seen and examined by Dr. Shell and myself and this note is written on his behalf Angie Luna Aug 20, 2016 12:54
--- NOTE | 2016-08-20 14:26 | HHI.PR ---
Subjective Remarks Follow-up Right forearm phlebitis. States pain is improving. Discussed with RN and cleared for discharge Objective Vitals Vital Signs Date Time Temp Pulse Resp B/P Pulse Ox O2 Delivery O2 Flow Rate FiO2 08/20/16 09:27 96 08/20/16 05:24 98.1 96 18 118/63 100 08/19/16 18:10 98.4 98 18 166/86 99 I/O 08/19/16 08/19/16 08/19/16 08/20/16 08/20/16 08/20/16 07:00 15:00 23:00 07:00 15:00 23:00 Intake Total 800 ml Balance 800 ml Other 800 ml Result Diagram: 08/19/16 0820 Objective Remarks GENERAL: This is a well-nourished, well-developed patient, in no apparent distress. Awake and alert. SKIN: No rashes, ecchymoses or lesions. Cool and dry. HEENT: Atraumatic. Normocephalic. EOMI. NECK: Trachea midline. CARDIOVASCULAR: Regular rate and rhythm without murmurs, gallops, or rubs. RESPIRATORY: Clear to auscultation. Breath sounds equal bilaterally. No wheezes , rales, or rhonchi. GASTROINTESTINAL: Abdomen soft, non-tender, nondistended. No guarding. MUSCULOSKELETAL: Extremities without clubbing, cyanosis, or edema. Right occipital forearm with improving phlebitis NEUROLOGICAL: Awake and alert. Able to move all extremities. Normal speech. Procedures EGD and colonoscopy A/P Assessment and Plan 55yo female with PMHX of hypertension, diabetes, COPD, depression, bipolar disorder, GERD, INA on CPAP and mild CVA who was admitted to psychiatric unit for severe depression. Hospitalist services consulted for medical management. Depression Bipolar disorder - Management per psychiatric team History of colon polyps Patient reports recent hematochezia -EGD shows gastritis status post biopsy continue PPI. Colonoscopy shows diverticulosis continue metamucil. Avoid seeds, nuts, corns and constipation Chest pain History of myocardial bridging - No known history of coronary disease - trops negative - Cardiology following, status post nuclear stress test today - no significant ischemia found Hypertension Dyslipidemia - Improved BP Continue home antihypertensive meds prazosin, lisinopril 40 mg daily and verapamil 240 mg by mouth twice a day - ASA daily - Clonidine when necessary - continue statin therapy Lipitor 40mg daily (lipid panel shows poor control but patient admits to stopping all of her medications in June) - Monitor BP COPD - Continue home Spiriva and bronchodilators - Duonebs prn DM - A1c 6.2 - Metformin 500 mg by mouth twice a day - continue accuchecks - - ISS Left shoulder pain Left hip pain Difficulty with ambulation - Patient denies any previous injury - X-ray left shoulder and left hip negative for acute injuries - Lidoderm patch to left shoulder - PT eval/treatment GERD - PPI INA - Patient uses CPAP at home but unable to bring into the psych unit - Recommend the patient sleep on her side Vertigo with nystagmus history of CVA - Improved. Unremarkable head CT. Fall precautions, seizure precautions Right forearm phlebitis. Improving. Warm compress monitor for infection DVT prophylaxis - Patient is ambulatory Willian Moore MD Aug 20, 2016 14:26
[2016-08-20] MEDS ORDERED: ATOR40TA16 PO (14:31)
[2016-08-20] MEDS ORDERED: KONS100P3 PO (14:31)
[2016-08-20] MEDS ORDERED: PRAZ1 PO (14:31)
[2016-08-20] MEDS ORDERED: LISI-515 PO (14:31)
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
[2016-08-20 18:00] VITALS: BP 140/77; PULSE 90; RESP 17; TEMP 98.3; O2SAT 100
[2016-08-20] MEDS: REMOVE OLD NICOTINE PATCH T-DERMAL SCH (21:00)
[2016-08-20] MEDS: PRAZOSIN HCL 1 MG CAP PO SCH (21:36)
[2016-08-20] MEDS: traZODone HCL 100 MG TAB PO SCH (21:36)
[2016-08-21] MEDS: RESP: IPRATROPIUM 0.5 MG/2.5 ML NEB NEB SCH ×4 (04:00→21:34)
[2016-08-21 05:35] VITALS: BP_SYST 114; BP_SYST 125; BP_SYST 133; BP_DIAS 64; BP_DIAS 69; BP_DIAS 75; PULSE 98; RESP 16; TEMP 97.6; O2SAT 93
[2016-08-21] MEDS: INSULIN ASPART SUPPLEMENTAL SCALE SQ SCH ×4 (06:10→21:00)
[2016-08-21] MEDS: ASPIRIN EC 81 MG TABEC PO SCH (08:20)
[2016-08-21] MEDS: CHOLECALCIFEROL (VIT D3) 1000 UNIT TAB PO SCH (08:20)
[2016-08-21] MEDS: LISINOPRIL 20 MG TAB PO SCH (08:21)
[2016-08-21] MEDS: metFORMIN HCL 500 MG TAB PO SCH ×2 (08:21→16:52)
[2016-08-21] MEDS: ZIPRASIDONE HCL 80 MG CAP PO SCH ×2 (08:21→16:52)
[2016-08-21] MEDS: LIDOCAINE HCL 5% PATCH T-DERMAL SCH (08:21)
[2016-08-21] MEDS: POLYETHYLENE GLYCOL 17 GM PKG PO SCH (08:21)
[2016-08-21] MEDS: OXcarbazepine 600 MG TAB PO SCH (08:21)
[2016-08-21] MEDS: PANTOPRAZOLE SOD 40 MG DELAYED RELEASE TAB PO SCH (08:21)
[2016-08-21] MEDS: GABAPENTIN 300 MG CAP PO SCH ×2 (08:21→21:07)
[2016-08-21] MEDS: NICOTINE 21 MG/24 HR PATCH T-DERMAL SCH (08:22)
[2016-08-21] MEDS: HYDROCORTISONE ACETATE 25 MG SUPP RECTAL SCH ×2 (08:22→21:00)
[2016-08-21] MEDS: PSYLLIUM FIBER SF/GF 6 GM POWD PKT PO SCH (08:48)
[2016-08-21] MEDS: TIOTROPIUM BROMIDE 18 MCG INH INH SCH (09:00)
[2016-08-21] MEDS: VERAPAMIL HCL 240 MG SUSTAINED RELEASE TAB PO SCH ×2 (09:32→21:12)
[2016-08-21] MEDS: ATORVASTATIN 40 MG TAB PO SCH (09:33)
--- NOTE | 2016-08-21 12:43 | HHI.PYPN ---
Subjective Remarks Patient seen and examined with nurse. Chart reviewed. Case discussed with nursing staff. On my examination today, the patient says that she feels improved in every respect except she now once again articulates HI against . She says that if she sees him, she'll kill him. She won't seek him out but would lash out if she saw him. She does not worry that this would result in legal sanction. No psychotic symptoms. No side effects from medications. No physical complaints. Review of Systems Except as stated in HPI: all other systems reviewed are Neg Objective Alert: Yes [place]: Person (O x 3) Mood: Calm Affect: Appropriate Memory Intact: Comment (intact) Hallucinations: Other (No hallucinations) Delusions: No Delusion Type: Other (No delusions) Suicidal: Ideation (Denies SI) Homicidal: Ideation (Now articulates HI against ) Insight/Judgment Fair Remarks No motor abnormalities noted. Thought process linear. Grooming and hygiene good. Labs Labs reviewed. Vitals/IOs Vital Signs Date Time Temp Pulse Resp B/P Pulse Ox O2 Delivery O2 Flow Rate FiO2 08/21/16 05:35 97.6 98 16 125/75 93 133/69 114/64 Assessment & Plan Problem List: (1) Adjustment disorder with mixed disturbance of emotions and conduct ICD Code: F43.25 (2) History of bipolar disorder ICD Code: Z86.59 Assessment & Plan Patient now articulating HI against after several days of remission of this symptom. Plan had been for discharge today, and patient was aware of this. Patient is quite comfortable on the unit and I suspect she is trying to extend her stay. She otherwise describes no significant psychiatric symptoms and feels otherwise improved. Continue psychotropics as ordered and monitor through the weekend. Justification for Cont. Inpt. Concern for impairment in safety Discharge Planning Monitor over the weekend. Probable discharge home after that Request HC Surrog/Guard Advoc?: No Alfonzo Helton MD Aug 21, 2016 12:43
[2016-08-21 18:00] VITALS: BP 114/64
[2016-08-21] MEDS: REMOVE OLD NICOTINE PATCH T-DERMAL SCH (21:00)
[2016-08-21] MEDS: PRAZOSIN HCL 1 MG CAP PO SCH (21:07)
[2016-08-21] MEDS: traZODone HCL 100 MG TAB PO SCH (21:07)
[2016-08-21] MEDS: diphenhydrAMINE HCL 50 MG CAP - HS PRN PO (21:12)
[2016-08-22] MEDS: RESP: IPRATROPIUM 0.5 MG/2.5 ML NEB NEB SCH ×4 (03:27→23:40)
[2016-08-22 05:35] VITALS: BP_SYST 138; BP_SYST 147; BP_DIAS 53; BP_DIAS 77; PULSE 86; RESP 20; TEMP 98
[2016-08-22] MEDS: INSULIN ASPART SUPPLEMENTAL SCALE SQ SCH ×4 (06:44→21:00)
[2016-08-22] MEDS: TIOTROPIUM BROMIDE 18 MCG INH INH SCH (08:27)
[2016-08-22] MEDS: POLYETHYLENE GLYCOL 17 GM PKG PO SCH (08:27)
[2016-08-22] MEDS: LISINOPRIL 20 MG TAB PO SCH (08:29)
[2016-08-22] MEDS: VERAPAMIL HCL 240 MG SUSTAINED RELEASE TAB PO SCH ×2 (08:29→21:21)
[2016-08-22] MEDS: ASPIRIN EC 81 MG TABEC PO SCH (08:29)
[2016-08-22] MEDS: metFORMIN HCL 500 MG TAB PO SCH ×2 (08:30→18:20)
[2016-08-22] MEDS: CHOLECALCIFEROL (VIT D3) 1000 UNIT TAB PO SCH (08:30)
[2016-08-22] MEDS: GABAPENTIN 300 MG CAP PO SCH ×2 (08:30→21:22)
[2016-08-22] MEDS: ZIPRASIDONE HCL 80 MG CAP PO SCH ×2 (08:30→18:20)
[2016-08-22] MEDS: PANTOPRAZOLE SOD 40 MG DELAYED RELEASE TAB PO SCH (08:30)
[2016-08-22] MEDS: ATORVASTATIN 40 MG TAB PO SCH (08:30)
[2016-08-22] MEDS: OXcarbazepine 600 MG TAB PO SCH (08:31)
[2016-08-22] MEDS: LIDOCAINE HCL 5% PATCH T-DERMAL SCH (08:38)
--- NOTE | 2016-08-22 08:54 | HHI.PR ---
Subjective Remarks Follow-up phlebitis and gastritis. Denies right arm and epigastric pain. She complains of productive cough of green phlegm discussed with RN Objective Vitals Vital Signs Date Time Temp Pulse Resp B/P Pulse Ox O2 Delivery O2 Flow Rate FiO2 08/22/16 05:35 138/77 08/22/16 05:35 98.0 86 20 147/53 08/21/16 18:00 114/64 Result Diagram: 08/19/16 0825 Imaging Last Impressions Head CT 08/18/16 0000 Signed Impressions: Service Date/Time: Thursday, August 18, 2016 16:55 - CONCLUSION: 1. No acute intracranial abnormality. Kennedy Wesley MD Shoulder X-Ray 08/17/16 0000 Signed Impressions: Service Date/Time: Wednesday, August 17, 2016 17:31 - CONCLUSION: Negative for acute process. Bob Wesley MD FACR Myocardial Perfusion Scan Nuc Med 08/17/16 0000 Signed Impressions: Service Date/Time: Wednesday, August 17, 2016 13:15 - CONCLUSION: No significant ischemia. RISK CATEGORY: Low (<1%% Annual Mortality Rate) KMadeleine Cunha MD Hip and Pelvis X-Ray 08/17/16 0000 Signed Impressions: Service Date/Time: Wednesday, August 17, 2016 17:31 - CONCLUSION: Negative for fracture or dislocation. Follow up in 7-10 days is suggested if symptoms persist. Bob Wesley MD FACR Abdomen/Pelvis CT 08/14/16 0000 Signed Impressions: Service Date/Time: Monday, August 15, 2016 16:55 - CONCLUSION: 1. Moderate hepatic steatosis. 2. The appendix is somewhat prominent in diameter measuring a centimeter but no inflammatory changes are noted. Clinical correlation. 3. Status post hysterectomy. Ramiro Vega MD Objective Remarks GENERAL: This is a well-nourished, well-developed patient, in no apparent distress. Awake and alert. SKIN: No rashes, ecchymoses or lesions. Cool and dry. HEENT: Atraumatic. Normocephalic. EOMI. NECK: Trachea midline. CARDIOVASCULAR: Regular rate and rhythm without murmurs, gallops, or rubs. RESPIRATORY: Clear to auscultation. Slightly decreased breath sounds left lung base. No wheezes, rales, or rhonchi. GASTROINTESTINAL: Abdomen soft, non-tender, nondistended. No guarding. MUSCULOSKELETAL: Extremities without clubbing, cyanosis, or edema. Right proximal forearm with resolving phlebitis NEUROLOGICAL: Awake and alert. Able to move all extremities. Normal speech. Procedures EGD and colonoscopy A/P Assessment and Plan 55yo female with PMHX of hypertension, diabetes, COPD, depression, bipolar disorder, GERD, INA on CPAP and mild CVA who was admitted to psychiatric unit for severe depression. Hospitalist services consulted for medical management. Depression Bipolar disorder - Management per psychiatric team History of colon polyps Patient reports recent hematochezia -EGD shows gastritis status post biopsy continue PPI. Pathology with mild active chronic gastritis. Colonoscopy shows diverticulosis continue metamucil. Avoid seeds, nuts, corns and constipation. Also history of GERD Chest pain History of myocardial bridging - No known history of coronary disease - trops negative - Cardiology following, status post nuclear stress test today - no significant ischemia found Hypertension Dyslipidemia - Improved BP Continue home antihypertensive meds prazosin, lisinopril 40 mg daily and verapamil 240 mg by mouth twice a day - ASA daily - Clonidine when necessary - continue statin therapy Lipitor 40mg daily (lipid panel shows poor control but patient admits to stopping all of her medications in June) - Monitor BP Acute bronchitis suspect pneumonia COPD - Add albuterol as needed for shortness of breath, start Z-Srinath obtain sputum and chest x-ray - Continue home Spiriva DM - A1c 6.2 - Metformin 500 mg by mouth twice a day - continue accuchecks - - ISS Left shoulder pain Left hip pain Difficulty with ambulation - Patient denies any previous injury - X-ray left shoulder and left hip negative for acute injuries - Lidoderm patch to left shoulder - PT eval/treatment INA - Patient uses CPAP at home but unable to bring into the psych unit - Recommend the patient sleep on her side Vertigo with nystagmus history of CVA - Improved. Unremarkable head CT. Fall precautions, seizure precautions Right forearm phlebitis. Resolving. Warm compress monitor for infection DVT prophylaxis - Patient is ambulatory Willian Moore MD Aug 22, 2016 08:54
[2016-08-22] MEDS: HYDROCORTISONE ACETATE 25 MG SUPP RECTAL SCH ×2 (09:00→21:00)
[2016-08-22] MEDS: PSYLLIUM FIBER SF/GF 6 GM POWD PKT PO SCH (09:00)
[2016-08-22] MEDS: NICOTINE 21 MG/24 HR PATCH T-DERMAL SCH (09:00)
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
[2016-08-22] MEDS ORDERED: RESP: ALBUTEROL 2.5 MG/3 ML NEB (PRN) INH (12:30)
[2016-08-22] MEDS ORDERED: BENZONATATE 100 MG CAP PO PRN (12:30)
[2016-08-22] MEDS: guaiFENesin E.R. 600 MG TAB PO SCH ×2 (15:21→21:21)
[2016-08-22] MEDS: LEVALBUTEROL INH SCH ×2 (16:00→20:00)
[2016-08-22 18:41] VITALS: BP 135/72; PULSE 101; RESP 16; TEMP 98.1; O2SAT 96
[2016-08-22] MEDS: REMOVE OLD NICOTINE PATCH T-DERMAL SCH (21:00)
[2016-08-22] MEDS: traZODone HCL 100 MG TAB PO SCH (21:21)
[2016-08-22] MEDS: PRAZOSIN HCL 1 MG CAP PO SCH (21:21)
[2016-08-22] MEDS: diphenhydrAMINE HCL 50 MG CAP - HS PRN PO (21:23)
--- NOTE | 2016-08-22 23:29 | RADRPT ---
EXAM DATE/TIME: 08/22/2016 23:13 [facility] COMPARISON: No previous studies available for comparison. INDICATIONS : Evaluate for COPD, Shortness of breath. MEDICAL HISTORY : Cardiovascular disease. Hypertension Seizures SURGICAL HISTORY : Hysterectomy. ENCOUNTER: Initial ACUITY: 1 week PAIN SCORE: 7/10 LOCATION: Bilateral chest FINDINGS: PA and lateral views of the chest demonstrate the lungs to be symmetrically aerated without evidence of mass, infiltrate or effusion. The cardiomediastinal contours are unremarkable. Osseous structure s are intact. CONCLUSION: No acute disease. Farooq Dumont MD on August 22, 2016 at 23:28 Board Certified Radiologist. This report was verified electronically.
[2016-08-23] MEDS: RESP: IPRATROPIUM 0.5 MG/2.5 ML NEB NEB SCH ×4 (03:50→22:00)
[2016-08-23] MEDS: LEVALBUTEROL INH SCH ×2 (04:00)
[2016-08-23 06:00] VITALS: BP 120/57; PULSE 86; RESP 16; TEMP 97.9; O2SAT 93
[2016-08-23] MEDS: INSULIN ASPART SUPPLEMENTAL SCALE SQ SCH ×4 (06:45→21:00)
[2016-08-23] MEDS: OXcarbazepine 600 MG TAB PO SCH (08:36)
[2016-08-23] MEDS: guaiFENesin E.R. 600 MG TAB PO SCH ×2 (08:36→21:16)
[2016-08-23] MEDS: NICOTINE 21 MG/24 HR PATCH T-DERMAL SCH (08:36)
[2016-08-23] MEDS: ASPIRIN EC 81 MG TABEC PO SCH (08:37)
[2016-08-23] MEDS: metFORMIN HCL 500 MG TAB PO SCH ×2 (08:37→18:00)
[2016-08-23] MEDS: PANTOPRAZOLE SOD 40 MG DELAYED RELEASE TAB PO SCH (08:37)
[2016-08-23] MEDS: VERAPAMIL HCL 240 MG SUSTAINED RELEASE TAB PO SCH ×2 (08:37→21:16)
[2016-08-23] MEDS: ZIPRASIDONE HCL 80 MG CAP PO SCH ×2 (08:37→18:00)
[2016-08-23] MEDS: ATORVASTATIN 40 MG TAB PO SCH (08:37)
[2016-08-23] MEDS: CHOLECALCIFEROL (VIT D3) 1000 UNIT TAB PO SCH (08:37)
[2016-08-23] MEDS: AZITHROMYCIN 250 MG TAB PO SCH (08:38)
[2016-08-23] MEDS: LIDOCAINE HCL 5% PATCH T-DERMAL SCH (08:38)
[2016-08-23] MEDS: LISINOPRIL 20 MG TAB PO SCH (08:38)
[2016-08-23] MEDS: POLYETHYLENE GLYCOL 17 GM PKG PO SCH (08:38)
[2016-08-23] MEDS: GABAPENTIN 300 MG CAP PO SCH ×2 (08:38→21:17)
[2016-08-23] MEDS: PSYLLIUM FIBER SF/GF 6 GM POWD PKT PO SCH (09:00)
[2016-08-23] MEDS: HYDROCORTISONE ACETATE 25 MG SUPP RECTAL SCH ×2 (09:00→21:00)
[2016-08-23] MEDS: TIOTROPIUM BROMIDE 18 MCG INH INH SCH (09:00)
[2016-08-23 15:32] VITALS: BP 134/72; PULSE 92; RESP 18; TEMP 96.4; O2SAT 98
--- NOTE | 2016-08-23 15:42 | HHI.PYPN ---
Subjective Remarks Patient was seen and case discussed with nursing. Patient continues with manipulative behavior. Says she feels "a lot better today, you broke me yesterday." Patient says after our conversation she went back to therapy" let it all out." Patient says she has an epiphany and refuses to let her dominate her thoughts. She says she is therefore no longer homicidal and has no ideation intent or plan of hurting him. She is grieving for his that metaphoric loss. Mood is bright and cheerful. Denies suicidal ideation intent or plan. Per nursing labile and irritable this morning demanding to know all her medications and their indications Objective Alert: Yes [place]: Person (O x 3), Place Mood: Calm Affect: Labile Memory Intact: Comment (intact) Hallucinations: Other (No hallucinations) Delusions: No Delusion Type: Other (No delusions) Suicidal: Ideation (Denies SI) Homicidal: Ideation (denies) Insight/Judgment Poor Vitals/IOs Vital Signs Date Time Temp Pulse Resp B/P Pulse Ox O2 Delivery O2 Flow Rate FiO2 08/23/16 15:32 96.4 92 18 134/72 98 Assessment & Plan Problem List: (1) Adjustment disorder with mixed disturbance of emotions and conduct ICD Code: F43.25 (2) History of bipolar disorder ICD Code: Z86.59 Assessment & Plan Continue current treatment plan Justification for Cont. Inpt. Patient would decompensate in a less restrictive setting Request HC Surrog/Guard Advoc?: No Barrera Woods DO Aug 23, 2016 15:42
[2016-08-23] MEDS: REMOVE OLD NICOTINE PATCH T-DERMAL SCH (21:00)
[2016-08-23] MEDS: traZODone HCL 100 MG TAB PO SCH (21:00)
[2016-08-23] MEDS: PRAZOSIN HCL 1 MG CAP PO SCH (21:16)
[2016-08-24] MEDS: INSULIN ASPART SUPPLEMENTAL SCALE SQ SCH ×2 (06:31→11:24)
[2016-08-24 06:32] VITALS: BP 106/57; PULSE 65; RESP 16; TEMP 98.2; O2SAT 97
[2016-08-24] MEDS: LEVALBUTEROL INH SCH ×3 (08:00→12:00)
[2016-08-24] MEDS: GABAPENTIN 300 MG CAP PO SCH (08:47)
[2016-08-24] MEDS: VERAPAMIL HCL 240 MG SUSTAINED RELEASE TAB PO SCH (08:48)
[2016-08-24] MEDS: guaiFENesin E.R. 600 MG TAB PO SCH (08:48)
[2016-08-24] MEDS: ASPIRIN EC 81 MG TABEC PO SCH (08:49)
[2016-08-24] MEDS: OXcarbazepine 600 MG TAB PO SCH (08:50)
[2016-08-24] MEDS: ZIPRASIDONE HCL 80 MG CAP PO SCH (08:50)
[2016-08-24] MEDS: AZITHROMYCIN 250 MG TAB PO SCH (08:51)
[2016-08-24] MEDS: PANTOPRAZOLE SOD 40 MG DELAYED RELEASE TAB PO SCH (08:52)
[2016-08-24] MEDS: ATORVASTATIN 40 MG TAB PO SCH (08:52)
[2016-08-24] MEDS: CHOLECALCIFEROL (VIT D3) 1000 UNIT TAB PO SCH (08:53)
[2016-08-24] MEDS: PSYLLIUM FIBER SF/GF 6 GM POWD PKT PO SCH (08:54)
[2016-08-24] MEDS: POLYETHYLENE GLYCOL 17 GM PKG PO SCH (08:56)
[2016-08-24] MEDS: TIOTROPIUM BROMIDE 18 MCG INH INH SCH (09:00)
[2016-08-24] MEDS: LISINOPRIL 20 MG TAB PO SCH (09:04)
[2016-08-24] MEDS: metFORMIN HCL 500 MG TAB PO SCH (09:04)
[2016-08-24] MEDS: HYDROCORTISONE ACETATE 25 MG SUPP RECTAL SCH (09:04)
[2016-08-24] MEDS: NICOTINE 21 MG/24 HR PATCH T-DERMAL SCH (09:05)
[2016-08-24] MEDS: LIDOCAINE HCL 5% PATCH T-DERMAL SCH ×2 (09:05→10:28)
[2016-08-24] MEDS: RESP: IPRATROPIUM 0.5 MG/2.5 ML NEB NEB SCH ×2 (10:23→10:42)
[2016-08-24] MEDS: traMADol HCL 50 MG TAB PO PRN (10:32)
[2016-08-24 10:45] VITALS: O2SAT 98
[2016-08-24] MEDS ORDERED: GEOD80CA PO (12:59)
[2016-08-24] MEDS ORDERED: TRAZ50TA12 PO (12:59)
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
== END 2016-08-24 16:15 | disposition home or self-care (01) | DRG 882 ==
LOC: H260 02:30
PROVIDERS: ADMIT Psychiatry & Neurology Psychiatry; ATTEND Psychiatry & Neurology Psychiatry
PROC: 0DB68ZX Excision of Stomach, Via Natural or Artificial Opening Endoscopic, Diagnostic (ICD-10-PCS; principal; 2016-08-19 11:30)
PROC: 0DJD8ZZ Inspection of Lower Intestinal Tract, Via Natural or Artificial Opening Endoscopic (ICD-10-PCS; 2016-08-19 11:30)
DX: F43.25 Adjustment disorder with mixed disturbance of emotions and conduct (principal); Q24.5 Malformation of coronary vessels; R45.851 Suicidal ideations; J44.0 Chronic obstructive pulmonary disease with (acute) lower respiratory infection; K92.1 Melena; I80.8 Phlebitis and thrombophlebitis of other sites; Z91.14 Patient's other noncompliance with medication regimen; K57.90 Diverticulosis of intestine, part unspecified, without perforation or abscess without bleeding; M79.7 Fibromyalgia; R45.850 Homicidal ideations; I10 Essential (primary) hypertension; E11.9 Type 2 diabetes mellitus without complications; K21.9 Gastro-esophageal reflux disease without esophagitis; G47.33 Obstructive sleep apnea (adult) (pediatric); M19.90 Unspecified osteoarthritis, unspecified site; K58.9 Irritable bowel syndrome, unspecified; G89.29 Other chronic pain; M54.2 Cervicalgia; M54.5 Low back pain; R63.4 Abnormal weight loss; M81.0 Age-related osteoporosis without current pathological fracture; K76.0 Fatty (change of) liver, not elsewhere classified; K29.50 Unspecified chronic gastritis without bleeding; F43.10 Post-traumatic stress disorder, unspecified; F31.9 Bipolar disorder, unspecified; E78.5 Hyperlipidemia, unspecified; J20.9 Acute bronchitis, unspecified; M25.552 Pain in left hip; M25.512 Pain in left shoulder; R07.9 Chest pain, unspecified; Z79.84 Long term (current) use of oral hypoglycemic drugs; Z86.010 Personal history of colon polyps; Z86.73 Personal history of transient ischemic attack (TIA), and cerebral infarction without residual deficits; Z91.5 Personal history of self-harm; Z86.59 Personal history of other mental and behavioral disorders; Z80.0 Family history of malignant neoplasm of digestive organs
CPT/HCPCS: 70450; 71020; 73030; 73502; 74177; 76937; 78452; 80048; 80053; 80061; 80076; 82550; 82948; 83036; 84443; 84484; 85025; 85652; 86140; 88305; 88312; 93005; 93017; 94640; 94664; A9502; J1610; J1815; J2785; J7644; Q0163; Q9963; Q9967

== ENCOUNTER 2016-09-08 15:53 | Emergency (ER) | payer OTHER ==
[~2016-09-08 15:53] MED LIST: ALEN1TAB48 PO; ASPI81CH CHEW; ATOR40TA16 PO; GABA600T PO; GEOD80CA PO; IPRA0.02 NEB; KONS100P3 PO; LISI-515 PO; METF500T PO; OMEG100010 PO; OXCA600T PO; PRAZ1 PO; PROT40TA PO; SPIRCAP INH; TRAZ50TA12 PO; VERA120T3 PO; VITA100064 PO; XOPEAER4 INH
[2016-09-08 16:15] VITALS: BP 189/88; PULSE 124; RESP 20; TEMP 98.6; O2SAT 96
[2016-09-08 16:31] VITALS: BP 140/83; PULSE 83; RESP 14; TEMP 98.3; O2SAT 98
[2016-09-08 17:09] VITALS: BP 149/83; PULSE 76; RESP 18; O2SAT 100
[2016-09-08 17:33] LABS: AUTOMATED NEUTROPHIL # 5.6 TH/MM3 (1.8-7.7); BASOPHIL % 0.3 % (0.0-2.0); EOSINOPHIL # 0.1 TH/MM3 (0-0.4); EOSINOPHIL % 1.3 % (0.0-4.0); HEMO FLAGS DIFF FINAL; LYMPHOCYTE # 2.7 TH/MM3 (1.0-4.8); MEAN CELL VOLUME 86.2 FL (80.0-100.0); MEAN CORPUSCULAR HEMOGLOBIN 29.6 PG (27.0-34.0); MEAN CORPUSCULAR HGB CONC 34.4 % (32.0-36.0); MONO % 6.3 % (0.0-8.0); NEUT % 62.1 % (16.0-70.0); PLATELET COUNT 270 TH/MM3 (150-450); RED BLOOD COUNT 4.29 MIL/MM3 (4.00-5.30); RED CELL DISTRIBUTION WIDTH 13.8 % (11.6-17.2)
--- NOTE | 2016-09-08 17:44 | PD ---
HPI Chief Complaint: Psychiatric Symptoms Time Seen by Provider: 17:39 Travel History International Travel<30 days: No Contact w/Intl Traveler<30days: No Traveled to known affect area: No History of Present Illness HPI 55-year-old female that presents to the ED for evaluation of psychiatric evaluation. Patient was Lara acted and was sent to [facility]. [facility] felt the patient was out of their scope of practice of the was sent here for evaluation. Patient has a history of diabetes, COPD, fibromyalgia. She voices no new complaints other than she has chronic left knee pain and she is supposed to get surgery for it at some point. She states that she feels suicidal and depressed. She was recently admitted to this hospital. He denies any other medical issues at this time. Allergy to the theophylline. PFSH Past Medical History Arthritis: Yes Asthma: Yes Heart Rhythm Problems: Yes (palpatations) Cardiovascular Problems: Yes (myocardial bridge) Chest Pain: Yes Congestive Heart Failure: No COPD: Yes Cerebrovascular Accident: Yes (no residual, 4 years ago) GERD: Yes Genitourinary: No Hiatal Hernia: Yes Musculoskeletal: Yes (DDD neck and lower back, left knee issues) Psychiatric: Yes Reproductive: No Respiratory: Yes Migraines: Yes (daily) Seizures: Yes Sleep Apnea: Yes Ulcer: No Past Surgical History Cardiac Surgery: Yes (heart hemanth) Gynecologic Surgery: Yes (partial hysterectomy) Social History Alcohol Use: No Tobacco Use: No Substance Use: No Allergies-Medications (Allergen,Severity, Reaction): Coded Allergies: Theophylline (Verified Allergy, Unknown, 08/14/16) Reported Meds & Prescriptions Reported Meds & Active Scripts Active Geodon (Ziprasidone) 80 Mg Cap 80 Mg PO BIDPC 10 Days Trazodone (Trazodone HCl) 50 Mg Tab 200 Mg PO HS 10 Days Konsyl (Psyllium Hydrophilic Mucilloid) 100 % Pow 1 Pkt PO DAILY Minipress (Prazosin HCl) 1 Mg Cap 3 Mg PO HS Lisinopril 20 Mg Tab 40 Mg PO DAILY Atorvastatin (Atorvastatin Calcium) 40 Mg Tab 40 Mg PO DAILY Reported Verapamil (Verapamil HCl) 120 Mg Tab 240 Mg PO BID Alendronate (Alendronate Sodium) 70 Mg Tab 70 Mg PO Q7D Hannibal 3 1000 mg ([place]annibal-3 Fatty Acids) 1 Cap Cap 3 Cap PO DAILY Protonix (Pantoprazole Sodium) 40 Mg Tab 40 Mg PO DAILY Metformin (Metformin HCl) 500 Mg Tab 500 Mg PO BIDPC With meals Ipratropium Neb (Ipratropium [place]) 0.5 Mg/2.5 Ml Amp 0.5 Mg NEB Q6HR NEB Spiriva Handihaler (Tiotropium Inh) 18 Mcg Cap 18 Mcg INH DAILY 1 capsule = 18 mcg Xopenex Hfa 15 GM Inh (Levalbuterol 15 GM Inh) 45 Mcg/Act Aer 45 Mcg INH Q4HR Shake well before using. (1 puff = 45 mcg) Gabapentin 600 Mg Tab 600 Mg PO BID Aspirin 81 Mg Chew 81 Mg CHEW DAILY Vitamin D3 (Cholecalciferol) 1,000 Unit Tab 2,000 Units PO DAILY Oxcarbazepine 600 Mg Tab 600 Mg PO DAILY Review of Systems Except as stated in HPI: all other systems reviewed are Neg Physical Exam Narrative GENERAL: SKIN: Warm and dry. HEAD: Atraumatic. Normocephalic. EYES: Pupils equal and round. No scleral icterus. No injection or drainage. ENT: No nasal bleeding or discharge. Mucous membranes pink and moist. Tongue is midline. No uvula deviation. NECK: Trachea midline. No JVD. CARDIOVASCULAR: Regular rate and rhythm. No murmurs, S3, S4. RESPIRATORY: No accessory muscle use. Clear to auscultation. Breath sounds equal bilaterally. GASTROINTESTINAL: Abdomen soft, non-tender, nondistended. Hepatic and splenic margins not palpable. MUSCULOSKELETAL: Extremities without clubbing, cyanosis, or edema. No obvious deformities. Full range of motion of the upper and lower extremities bilaterally. 2+ pulses bilaterally. Patient has abrasions to her left knee. NEUROLOGICAL: Awake and alert. No obvious cranial nerve deficits. Motor grossly within normal limits. Five out of 5 muscle strength in the arms and legs. Normal speech. PSYCHIATRIC: Appropriate mood and affect; insight and judgment normal. Data Data Last Documented VS Vital Signs Date Time Temp Pulse Resp B/P Pulse Ox O2 Delivery O2 Flow Rate FiO2 09/08/16 17:09 76 18 149/83 100 Room Air 09/08/16 16:31 98.3 Orders Complete Blood Count With Diff (09/08/16 16:02) Basic Metabolic Panel (Bmp) (09/08/16 16:02) Urinalysis - C+S If Indicated (09/08/16 16:02) Drug Screen, Random Urine (09/08/16 16:02) Diet Regular Basic (09/08/16 Dinner) Labs Laboratory Tests Test 09/08/16 17:00 White Blood Count 9.0 TH/MM3 Red Blood Count 4.29 MIL/MM3 Hemoglobin 12.7 GM/DL Hematocrit 37.0 % Mean Corpuscular Volume 86.2 FL Mean Corpuscular Hemoglobin 29.6 PG Mean Corpuscular Hemoglobin 34.4 % Concent Red Cell Distribution Width 13.8 % Platelet Count 270 TH/MM3 Mean Platelet Volume 7.4 FL Neutrophils (%) (Auto) 62.1 % Lymphocytes (%) (Auto) 30.0 % Monocytes (%) (Auto) 6.3 % Eosinophils (%) (Auto) 1.3 % Basophils (%) (Auto) 0.3 % Neutrophils # (Auto) 5.6 TH/MM3 Lymphocytes # (Auto) 2.7 TH/MM3 Monocytes # (Auto) 0.6 TH/MM3 Eosinophils # (Auto) 0.1 TH/MM3 Basophils # (Auto) 0.0 TH/MM3 CBC Comment DIFF FINAL Differential Comment MDM Medical Decision Making Medical Screen Exam Complete: Yes Emergency Medical Condition: Yes Medical Record Reviewed: Yes Differential Diagnosis Depression versus suicidal ideation versus anxiety versus adjustment disorder versus mood disorder versus bipolar disorder versus schizophrenia versus paranoid disorder versus psychosis versus substance abuse versus alcohol abuse versus alcohol induced psychosis versus homicidality addition versus cutting versus personality disorder Narrative Course 54-year-old female that presents to the ED for evaluation of psychiatric illness. No sign of acute medical distress. Patient was properly examined and was found to have signs and symptoms very consistent with psychiatric illness. Patient will be medically cleared. Okay to be seen by psych. Mental health screening was discussed with the patient. Diagnosis Primary Impression: History of bipolar disorder Jose Alberto Woods Sep 08, 2016 17:44
[2016-09-08 17:45] LABS: BLOOD, URINE NEG (NEG); CALCIUM OXALATE CRYSTALS,URINE FEW /hpf; COMMENT (UR) CULT NOT INDICATED; CULTURE IF INDICATED CULT NOT INDICATED; GLUCOSE,URINE NEG (NEG); KETONE, URINE NEG (NEG); MUCUS URINE FEW /lpf (OCC); NITRITE,URINE NEG (NEG); PH, URINE 5.5 (5.0-8.5); SQUAMOUS EPITHELIAL CELL URINE 7 /hpf (0-5); URINE COLOR YELLOW (YELLW/STRAW)
[2016-09-08 17:46] LABS: AMPHETAMINE, URINE NEG (NEG); BARBITURATES, URINE NEG (NEG); COCAINE, URINE NEG (NEG)
[2016-09-08 17:54] LABS: BICARBONATE 27.6 MEQ/L (21.0-32.0); POTASSIUM 3.9 MEQ/L (3.5-5.1)
[2016-09-08] MEDS ORDERED: LORazepam 1 MG TAB PO ONE (21:30)
[2016-09-09 02:26] VITALS: BP 138/75; PULSE 71; RESP 18
[2016-09-09 06:08] VITALS: BP 156/76; PULSE 74; RESP 20
[2016-09-09 09:20] VITALS: BP 156/76; PULSE 74; RESP 20
--- NOTE | 2016-09-09 09:20 | PD ---
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 Wants to be gone... be ". She did not make any attempts at harming herself or anyone else. The history I obtained is that she was discharged from [facility] on August 24, 2016 and was then hospitalizes at [facility] on August 25 until September 07, 2016 for exacerbation of COPD. She reports she didn't take her psychiatric medications while at [facility] because she " did not tell the physician she was on medications. upon discharge from she was Ba at [facility]. EMR is reviewed. Most recent psychiatric admission as above stated. Patient is monitored in J pod. She presents no behavioral concerns and no suicidality. The patient is seen with ALEK Serna. She is alert and oriented female who is dressed in hospital attire. She is maintaining basic hygiene. Speech is clear and logical. There is no indication that she is exhibiting any psychotic symptoms and at this time she denies any hallucinatory process. . She states " I need my medication and that is why they sent me here. I have my prescriptions at home.She indicates to me that when she went home she was " having bad thoughts'. Presently she does not endorse any suicidal or homicidal ideation, intent or plan. She is focused on obtaining her medications and we have provided her with information as to how to access such services at [facility]. Mood is euthymic. PFSH Past Medical History Arthritis: Yes Asthma: Yes Heart Rhythm Problems: Yes (palpatations) Cardiovascular Problems: Yes (myocardial bridge) Chest Pain: Yes Congestive Heart Failure: No COPD: Yes Cerebrovascular Accident: Yes (no residual, 4 years ago) Gastrointestinal Disorders: Yes (history of Colitis) GERD: Yes Genitourinary: No Hiatal Hernia: Yes Hypertension: Yes Musculoskeletal: Yes (DDD neck and lower back, left knee issues) Psychiatric: Yes Reproductive: No Respiratory: Yes Migraines: Yes (daily) Seizures: Yes Sleep Apnea: Yes Ulcer: No ?: Unknown Past Surgical History Cardiac Surgery: Yes (heart hematnh) Gynecologic Surgery: Yes (partial hysterectomy) Other Surgery: Yes (partial hysterectomy, laperscopy, heart hemanth) Psychiatric History Psychiatric History Hx Psychiatric Treatment: PATIENT WAS ADMITTED TO [facility] FROM 08/14/16 TO 08/24/16 History of Inpatient Treatment: Yes Guns or firearms in home: No Social History female. Currently living with her daughter. Unemployed. Hx Alcohol Use: No Hx Tobacco Use: No Hx Substance Use: No (PATIENT DENIES) Hx of Substance Use Treatment: No Family Psychiatric History None reported. Allergies-Medications (Allergen,Severity, Reaction): Coded Allergies: Theophylline (Verified Allergy, Unknown, 08/14/16) Reported Meds & Prescriptions Reported Meds & Active Scripts Active Geodon (Ziprasidone) 80 Mg Cap 80 Mg PO BIDPC 10 Days Trazodone (Trazodone HCl) 50 Mg Tab 200 Mg PO HS 10 Days Minipress (Prazosin HCl) 1 Mg Cap 3 Mg PO HS Lisinopril 20 Mg Tab 40 Mg PO DAILY Atorvastatin (Atorvastatin Calcium) 40 Mg Tab 40 Mg PO DAILY Reported Verapamil (Verapamil HCl) 120 Mg Tab 240 Mg PO BID Protonix (Pantoprazole Sodium) 40 Mg Tab 40 Mg PO DAILY Metformin (Metformin HCl) 500 Mg Tab 500 Mg PO BIDPC With meals Spiriva Handihaler (Tiotropium Inh) 18 Mcg Cap 18 Mcg INH DAILY 1 capsule = 18 mcg Xopenex Hfa 15 GM Inh (Levalbuterol 15 GM Inh) 45 Mcg/Act Aer 45 Mcg INH Q4HR Shake well before using. (1 puff = 45 mcg) Gabapentin 600 Mg Tab 600 Mg PO BID Aspirin 81 Mg Chew 81 Mg CHEW DAILY Vitamin D3 (Cholecalciferol) 1,000 Unit Tab 2,000 Units PO DAILY Oxcarbazepine 600 Mg Tab 600 Mg PO DAILY Review of Systems Except as stated in HPI: all other systems reviewed are Neg Musculoskeletal: COMPLAINS OF: Joint pain Exam Alert: Yes [place]: Person (ox4) Mood: Calm Affect: Appropriate Speech: Clear, Logical Eye Contact: Normal Memory Intact: Comment (No impairment) Hallucinations: Other (negative) Delusions: No Suicidal: Ideation (negative) Homicidal: Ideation (Negative) Insight/Judgement Fair. Not impaired. MDM Medical Decision Making Medical Record Reviewed: Yes Assessment/Plan 55-year-old female with history of adjustment disorder, bipolar disorder , and PTSD who presents to ED under a BA initiated by social sciences department chair at [facility].As per the report " the patient has been noncompliant with her treatment and answers yes when asked if she wants to hurt herself. Wants to be gone... be ". She did not make any attempts at harming herself or anyone else. Patient is s eking her medications at this time. She does not present any suicidal or homicidal ideation, intent or plan and does not demonstrate any psychosis. At this time she is cleared for discharge. Follow up with [facility]. Orders Complete Blood Count With Diff (09/08/16 16:02) Basic Metabolic Panel (Bmp) (09/08/16 16:02) Urinalysis - C+S If Indicated (09/08/16 16:02) Drug Screen, Random Urine (09/08/16 16:02) Diet Regular Basic (09/08/16 Dinner) Psych Screen (09/08/16 20:56) Lorazepam (Ativan) (09/08/16 21:30) Diet Regular Basic (09/09/16 Breakfast) Results Vital Signs Date Time Temp Pulse Resp B/P Pulse Ox O2 Delivery O2 Flow Rate FiO2 09/09/16 06:08 74 20 156/76 09/09/16 02:26 71 18 138/75 Room Air 09/08/16 17:09 76 18 149/83 100 Room Air 09/08/16 16:31 98.3 83 14 140/83 98 Room Air Laboratory Tests Test 09/08/16 09/08/16 16:00 17:00 Urine Color YELLOW Urine Turbidity HAZY Urine pH 5.5 Urine Specific [place] 1.029 Urine Protein TRACE Urine Glucose (UA) NEG Urine Ketones NEG Urine Occult Blood NEG Urine Nitrite NEG Urine Bilirubin NEG Urine Urobilinogen 2.0 Urine Leukocyte Esterase NEG Urine RBC LESS THAN 1 Urine WBC 1 Urine Squamous Epithelial 7 Cells Urine Calcium Oxalate Crystals FEW Urine Mucus FEW Microscopic Urinalysis Comment CULT NOT INDICATED Urine Opiates Screen NEG Urine Barbiturates Screen NEG Urine Amphetamines Screen NEG Urine Benzodiazepines Screen NEG Urine Cocaine Screen NEG Urine Cannabinoids Screen NEG White Blood Count 9.0 Red Blood Count 4.29 Hemoglobin 12.7 Hematocrit 37.0 Mean Corpuscular Volume 86.2 Mean Corpuscular Hemoglobin 29.6 Mean Corpuscular Hemoglobin 34.4 Concent Red Cell Distribution Width 13.8 Platelet Count 270 Mean Platelet Volume 7.4 Neutrophils (%) (Auto) 62.1 Lymphocytes (%) (Auto) 30.0 Monocytes (%) (Auto) 6.3 Eosinophils (%) (Auto) 1.3 Basophils (%) (Auto) 0.3 Neutrophils # (Auto) 5.6 Lymphocytes # (Auto) 2.7 Monocytes # (Auto) 0.6 Eosinophils # (Auto) 0.1 Basophils # (Auto) 0.0 CBC Comment DIFF FINAL Differential Comment Sodium Level 140 Potassium Level 3.9 Chloride Level 104 Carbon Dioxide Level 27.6 Anion Gap 8 Blood Urea Nitrogen 10 Creatinine 0.79 Estimat Glomerular Filtration 76 Rate Random Glucose 109 Calcium Level 9.7 Diagnosis Primary Impression: Adjustment disorder with mixed anxiety and depressed mood Psychiatrically Cleared: Yes Med/ Other Pt Specific Info: No Change to Meds Disposition: 01 DISCHARGE HOME Condition: Stable Anabelle Bob Sep 09, 2016 09:20
== END 2016-09-09 10:30 | disposition home or self-care (01) ==
LOC: NEPJ 15:53
DX: F43.23 Adjustment disorder with mixed anxiety and depressed mood (principal); F31.9 Bipolar disorder, unspecified
CPT/HCPCS: 80048; 80307; 81001; 85025; 99284